=== PATIENT | male | born 1980 | race Hispanic/Latino ===

== ENCOUNTER 2017-06-02 13:27 | Inpatient (IN) ==
[2017-06-02] MEDS ORDERED: ONDANSETRON 4 MG/2 ML VIAL IVP ONE (14:03)
[2017-06-02] MEDS ORDERED: Sodium Chloride 0.9% 1,000 ML PRIMARY IV ONE (14:03)
[2017-06-02] MEDS ORDERED: NORMAL SALINE 10 ML SYRINGE FLUSH IVP PRN ×2 (14:03→19:01)
[2017-06-02] MEDS ORDERED: Sodium Chloride 0.9% 1,000 ML, Magnesium Sulfate 2gm (Premix) 50 ML with Multivitamin I... IV ONE ×5 (14:08)
[2017-06-02] MEDS ORDERED: LORazepam 2 MG/1 ML VIAL IVP ONE ×2 (14:10→19:01)
[2017-06-02] MEDS ORDERED: HYDROmorphone 2 MG/1 ML IVP ONE (14:11)
[2017-06-02 14:12] LABS: BASOPHILS # (AUTO) 0.06 10*3/UL; BASOPHILS % (AUTO) 1.1 % (0-1); EOSINOPHILS # (AUTO) 0.01 10*3/UL; EOSINOPHILS % (AUTO) 0.2 % (0-8); LYMPHOCYTES # (AUTO) 1.45 10*3/uL; MEAN CORPUSCULAR HEMOGLOBIN 27.6 PG (27-31); MEAN CORPUSCULAR HGB CONC 34.9 g/dL (33-37); MEAN CORPUSCULAR VOLUME 79.2 FL (80-90); MEAN PLATELET VOLUME 8.8 FL (7.4-12.2); MONOCYTES # (AUTO) 0.29 10*3/UL (0.3-0.8); MONOCYTES % (AUTO) 5.3 % (5-15); NEUTROPHILS # (AUTO) 3.64 10*3/UL; NEUTROPHILS % (AUTO) 66.6 % (50-80); RED BLOOD COUNT 5.43 10^6/uL (4.70-6.10)
[2017-06-02 14:17] LABS: PLATELET MORPHOLOGY COMMENT NORMAL MORPHOLOGY (NORM); RBC MORPHOLOGY COMMENT NORMAL MORPHOLOGY (NORM); WBC MORPHOLOGY COMMENT NORMAL MORPHOLOGY (NORM)
[2017-06-02 14:18] LABS: BLOOD UREA NITROGEN 7 mg/dL (7-22); SERUM ALBUMIN 5.1 g/dL (3.5-4.8)
[2017-06-02 14:21] LABS: LIPASE 146 IU/L (23-300)
[2017-06-02] MEDS ORDERED: Sodium Chloride 0.9% 1,000 ML with Multivitamin Inj 10 ML, Thiamine Inj 100 MG, Folic A... IV ONE ×5 (14:30)
[2017-06-02 14:32] LABS: VENOUS PH 7.63 (7.32-7.42)
--- NOTE | 2017-06-02 15:39 | EKG ---
[address] [address] Measurements Intervals [place] Rate: 106 P: 58 MS: 137 QRS: 65 QRSD: 94 T: -3 QT: 345 QTc: 407 Interpretive Statements SINUS TACHYCARDIA NONSPECIFIC T-WAVE ABNORMALITY No previous ECG available for comparison Electronically Signed On 06-02-17 16:15:07 MST by Vinay Moctezuma MD [email or web address]
--- NOTE | 2017-06-02 17:23 | DI ---
CT ABDOMEN SCAN WITH IV CONTRAST, 06/02/2017 2:12 PM : Clinical History: Abdominal pain. Previous Exam: None at this facility. Scans are performed from the lower lung bases through the liver and kidneys with IV contrast. 85 ml o f Isovue 300 was injected IV. No oral or rectal contrast was ordered. The lung bases are clear. The liver is normal. The gallbladder is grossly normal. There is no abnorma lity of the spleen, pancreas, and adrenal glands. Both kidneys are normal in size, shape, position an d contour. There is no hydronephrosis or hydroureter. No renal or ureteral calculi are present. There are no abnormal retrocrural or periaortic nodes. No ascites is present. READING: Normal CT abdomen scan. CT PELVIS SCAN WITH IV CONTRAST, 06/02/2017 2:12 PM: Clinical History: See above. Previous Exam: None at this facility. Scans are performed from just superior to the umbilicus to the symphysis pubis with IV contrast. This is the same bolus of contrast used for the CT scans of the abdomen. Scans through the lower abdomen and pelvis show no masses or abnormal fluid collections. There is no adenopathy. The appendix is normal. The small bowel, terminal ileum, and ileocecal valve are normal. The colon is also normal. There is a small umbilical hernia through which only mesenteric fat has her niated. READING: Normal CT scan of the pelvis. There is a small umbilical hernia through which only mesenteric fat has herniated.
[2017-06-02] MEDS ORDERED: Sodium Chloride 0.9% 1,000 ML PRIMARY IV SCH (18:15)
[2017-06-02] MEDS ORDERED: LIDOCAINE W/ SODIUM BICARB 0.5 ML SYR SUBD PRN (19:01)
[2017-06-02] MEDS ORDERED: MAGNESIUM 400 MG/5 ML - 30 ML (MILK OF MAGNESIA) PO PRN (19:01)
--- NOTE | 2017-06-02 19:33 | PDOC ---
HPI - History of Present Illness Date of Service: 06/02/17 Time of Service: 19:25 Chief Complaint: Abdominal pain and alcohol withdrawal History of Present Illness: This is a very pleasant 37-year-old male with a history of alcohol abuse, accompanied by his father, who presents with complaints of alcohol which all and stomach pain. He states that he was told after her scope in [place], [place], that he had a stomach that look like ground meat. He states that he' s had no black or tarry stools, no diarrhea, but he's had diffuse abdominal pain and has had some vomiting. He thinks it could've been some blood in the vomit as well. He was told from [place], [place], that he needed to remain on a proton pump inhibitor and he has been on Protonix since that time. It is not known how consistently he is with those medications. Be that as it may, the patient started drinking again in a binge pattern. He was drinking very heavily until last night. He called [facility], and was apparently accepted into their program for alcohol treatment, but he was told that he needed to go through acute withdrawal prior to arrival. He called there today and told them about his complaints of stomach pain and they told him to come in to the emergency room for evaluation. Lipase was negative and a CT scan was nonrevealing of any pathology to explain abdominal pain. He was in withdrawal, had shaking bilaterally in his upper extremities, had a low-grade temperature 99.2, was hypertensive, and tachycardic. He got 2 mg of Ativan in the emergency room. We have now admitted him and are placing him on a Precedex drip along with Ativan. He is resting a little bit more comfortably now. He stated Ativan and Dilaudid in the emergency room seemed to help him feel better. Past Medical History Medical History: 1. Alcohol abuse with alcohol withdrawal. 2. Presumably either an ulcer or alcoholic gastritis by EGD in [place]. Records of that scope are not available for review. Surgical History: 1. EGD. 2. Testicle removal due to a benign cyst. Pertinent Family History: Family history of alcoholism. Apparently mother's side of the family has coronary artery disease. Past Social History: Smokes tobacco. Denies drug use. Currently unemployed. Drinks alcohol and has been drinking alcohol since age 14. Spent 4 weeks in care home at one point in the past related to alcohol abuse. Tobacco Use: Current Every Day Smoker Do you dip or chew tobacco: Yes In the Past 12 Months, Have Used or Abuse Any of the Following Substance: None Alcohol Use: Heavy Medication / Allergies Home Medications: Home Medications Medication Instructions Recorded Confirmed Type Ibuprofen [Motrin Tab] 200 mg PO Q6H PRN 07/26/14 06/02/17 History Escitalopram Oxalate [Lexapro] 1 tab PO DAILY #30 tab 03/20/16 06/02/17 Rx Oxycodone HCl/Acetaminophen 1 ea PO TID #60 tab 03/20/16 06/02/17 Rx [Percocet 5-325 Mg Tablet] oxyCODONE/APAP 5/325 Tab 1 tab PO Q6H PRN 06/02/17 06/02/17 History [Percocet 5/325 Tab] Allergies/Adverse Reactions: Allergies 3 Allergy/AdvReac Type Severity Reaction Status Date / Time No Known Allergies Allergy Verified 06/02/17 15:31 Review of Systems - Review of Systems All Systems: Reviewed & No Additional Complaints Except as Stated (I did a 12 point review systems and it was negative other than that stated in history present illness and that noted below.) - Respiratory Respiratory: REPORTS: Negative System Review - Cardiovascular Cardiovascular: REPORTS: Negative System Review - Gastrointestinal Gastrointestinal / Abdominal: REPORTS: Abdominal Pain - Psychiatric Psychiatric: REPORTS: Anxiety (He states his anxiety is been severe and diagnosed a couple of times, but he did not do well on Xanax therapy. Not on active medications for his anxiety.) Exam - Vitals Vital Signs: Vital Signs - Last Taken Temperature 97.2 F 06/02/17 16:15 Pulse Rate 85 06/02/17 16:15 Respiratory Rate 18 06/02/17 16:15 Blood Pressure 164/107 06/02/17 16:15 Pulse Ox 100 06/02/17 16:15 - General General Appearance: Cooperative, Mild Distress (In withdrawal) - Head Head Exam: Normal Inspection, Normocephalic, Atraumatic - Eye Eye Exam: POSITIVE: No Scleral Icterus - ENT ENT Exam: POSITIVE: Mucous Membranes Dry Additonal ENT Exam Details: Poor dentition and missing several front teeth No lacerations on tongue - Neck Neck Exam: Normal Inspection, No Tenderness, No Lymphadenopathy, No Thyromegaly - Respiratory Respiratory Exam: POSITIVE: Clear to Auscultation - Bilaterally, Breathing Non Labored, Normal to Percussion and Palpation - Cardiovascular Cardiovascular Exam: POSITIVE: No Murmur, No Clicks, No Gallops, No Rubs, Tachycardia, No JVD - GI/Abdominal GI/Abdominal Exam: POSITIVE: Normal Bowel Sounds, Non Tender, Non Distended, Soft - Rectal Rectal Exam: POSITIVE: Deferred - External Exam: POSITIVE: Deferred Exam: POSITIVE: Deferred - Extremities Extremities Exam: POSITIVE: No Clubbing Present, No Edema Present, No Cyanosis Present - Back Back Exam: POSITIVE: Normal Inspection, No CVA Tenderness - Neurological Neurological Exam: POSITIVE: Alert, Oriented x 3, No Facial Droop, Speech Intact / Clear, Moves All Extremities Equally - Psychiatric Psychiatric Exam: POSITIVE: Anxious Results - Labs CBC and BMP: 06/02/17 13:30 06/02/17 13:30 - EKG Data -: EKG Interpreted by Me Rate: Tachycardia EKG Shows Normal: Sinus Rhythm - Imaging Status: Report Reviewed by Me (CT scan negative for pancreatitis on my view.) Assessment and Plan - Patient Problems (1) Delirium tremens Current Visit: Yes Status: Acute Code(s): F10.231 - Alcohol dependence with withdrawal delirium (2) Alcoholic gastritis Current Visit: Yes Status: Acute Code(s): K29.20 - Alcoholic gastritis without bleeding (3) Hypomagnesemia Current Visit: Yes Status: Acute Code(s): E83.42 - Hypomagnesemia - Assessment / Plan Additional Assessment/Plan Details: Admit the patient CIWA protocol. Precedex drip. Replace electrolytes such as potassium and magnesium. Given the severe nature of delirium tremens, and potential life-threatening issues that can arise with delirium tremens, Precedex drip, and sedative medications such as benzodiazepines, the patient really needs to be in the intensive care unit. Librium will be administered 3 times a day Consultation eICU to help with management of delirium tremens and severe alcohol withdrawal. I agree with the patient's plan to go to [facility] for alcohol rehabilitation. I discussed this with the patient and the patient's father, and I think that his plan is really good. Protonic IV for what I presume to be alcoholic gastritis. Try to get the records from [place].
--- NOTE | 2017-06-02 19:35 | PDOC ---
Abdomen/Flank HPI - General Chief Complaint: Chest Pain Stated Complaint: "alcohol withdrawal; abdominal pain " Date Seen by Provider: 06/02/17 Time Seen by Provider: 13:40 Source: POSITIVE: Patient, Other (Father) Exam Limitations: POSITIVE: No limitations Nurse's Notes Reviewed & Considered: Yes - History of Present Illness Initial Comments: The patient is a 37-year-old male who is brought to the emergency room by his father. Patient has a long-standing history of alcohol abuse. Patient states he stopped drinking around 6 PM yesterday evening and early this morning began to develop tremulousness, diaphoresis, rapid heart rate and anxiety. He also states he's had some epigastric pain for the past 2 days, which is become worse over the past 2 hours. Patient was having his [place] [facility] [place] Patient states symptoms became severe so the father brought the patient to our emergency room. Patient states that he has a history of withdrawal and "DTs". He states he also has a history of pancreatitis. Patient states he underwent endoscopy 2 months ago, and he states this showed "the lining of my stomach". Patient denies any use of illegal drugs. Patient has had a right orchiectomy. History of hypertension. Body Location Affected: REPORTS: Abdomen, Other (Withdrawal symptoms as above) Timing: REPORTS: Gradual, Getting Worse Duration: <24 hours Severity: Moderate Quality: REPORTS: "Pain" (Upper abdominal pain) Abdominal Pain Onset Location: REPORTS: RUQ, LUQ, Epigastric Abdominal Pain Radiation: REPORTS: No radiation Context: REPORTS: None Modifying Factors: improves with: Nothing Associated Symptoms: REPORTS: Other (Adrenergic symptoms compatible with alcohol withdrawal as above) Similar Symptoms Previously: Yes Recent Care Received: REPORTS: Denies Any Prior Injuries Related to Current Complaint?: No - Patient Home Medications Home Medications: Home Medications Ibuprofen [Motrin Tab] 200 mg PO Q6H PRN 07/26/14 Escitalopram Oxalate [Lexapro] 1 tab PO DAILY #30 tab 03/20/16 Oxycodone HCl/Acetaminophen [Percocet 5-325 Mg Tablet] 1 ea PO TID #60 tab 03/20 oxyCODONE/APAP 5/325 Tab [Percocet 5/325 Tab] 1 tab PO Q6H PRN 06/02/17 - Patient Allergies Allergies/Adverse Reactions: Allergies 3 Allergy/AdvReac Type Severity Reaction Status Date / Time No Known Allergies Allergy Verified 06/02/17 15:31 Past Medical History - heen HEENT History: Denies History Cardiovascular History: Denies History Respiratory History: Denies History Gastrointestinal History: Pancreatitis, Other (please comment) Additional Gastrointestinal History: Patient recently had endoscopy, states the doctor told him his stomach "looked like hamburger" Genitourinary History: Denies History Endocrine History: Denies History Musculoskeletal History: Denies History Neurological History: Denies History Blood Disorders: Denies History Psychiatric History: Denies History History of Sexually Transmitted Diseases: No Male Reproductive History: Denies History Cancer History: Denies History In Past Year Been Physically Harmed or Verbally Threatened: No History of MDRO: No History of Other Communicable Diseases: No Tobacco Use: Current Every Day Smoker Alcohol Use: None Type of alcohol normally used: Hard Liquor In the Past 12 Months, Have Used or Abuse Any Substance: None Previous Surgical History: Yes Type / Date of Surgery: testicle removed Anesthesia Reactions: No Malignant Hyperthermia: No Family History of Malignant Hyperthermia: No Significant Family History: No pertinent family hx Past Medical History Reviewed: Reviewed - No Changes ROS - Limitations ROS Limitations: No Limitations Constitution: REPORTS: Chills, Diaphoresis, Other (Tremulousness, anxiety, tachycardia) Cardiovascular: REPORTS: Heart Racing Respiratory: REPORTS: Denies Resp Symptoms Neurological: REPORTS: Denies Neuro Symptoms, Tingling Gastrointestinal: REPORTS: Abdominal Pain, Nausea. DENIES: Vomitting, Diarrhea , Black Stools, Bloody Stools, Constipation Endocrine: REPORTS: Denies Symptoms Musculoskeletal: REPORTS: Denies MS Symptoms Genitourinary: REPORTS: Denies Symptoms Eyes: REPORTS: Denies Symptoms ENT: REPORTS: Denies Symptoms Skin: REPORTS: Denies Skin Symptoms Lympathic: REPORTS: Denies Lympathic Symptoms Immunologic: POSITIVE: Denies Symptoms Psychiatric: POSITIVE: Anxiety Abdominal/Flank Pain PE - General Appearance General Appearance: POSITIVE: Alert, Cooperative, Anxious, Moderate Distress ( Due to anxiety, tremulousness and upper abdominal pain) - HEENT HEENT: POSITIVE: Head Inspection Nml, Eyes Inspection Nml, Ears Inspection Nml, Nose Inspection Nml, Oral/Dental Inspect. Nml, Pharynx Inspect. Nml, PERRL, EOMI - Neck Neck: POSITIVE: Normal Inspection, No Apparent Injury - Respiratory Respiratory: POSITIVE: Other (Hyperventilating). NEGATIVE: No Respiratory Distress, Breath Sounds Normal, Chest Non-Tender, Wheezes, Rales, Rhonchi, See Diagram - Cardiovascular Cardiovascular: POSITIVE: Regular Rate and Rhythm, Heart Sounds Normal, Equal Pulses, Strong Pulses, Tachycardia (Sinus tachycardia of 115). NEGATIVE: Irregularly Irreg Rhythm Peripheral Pulses: Radial (R): 2+, Radial (L): 2+ - Chest Chest: POSITIVE: Non Tender - Abdomen Abdomen: Soft: (All Quadrants), Normal Bowel Sounds: (All Quadrants), Denies Tenderness: (All Quadrants), No Splenomegaly: (All Quadrants), No Hepatomegaly: (All Quadrants), No Guarding: (All Quadrants), No Rebound: (All Quadrants), No Palpable Pulse: (All Quadrants), No Palpabale Mass: (All Quadrants), No Distention: (All Quadrants), No Rigidity: (All Quadrants) - Back Back: POSITIVE: Normal Inspection - Skin Skin: POSITIVE: Intact, Normal For Race, Warm, Dry, No Rash - Extremities Extremity: Non-Tender: (All Extremities), Normal ROM: (All Extremities), Normal Inspection: (All Extremities) - Neurological Neurological: POSITIVE: Oriented X3, injury/safety hazard assessment Normal As Tested, Motor Normal, Sensation Normal. NEGATIVE: Affect Apporpriate (Very anxious) - Psychological Psychiatric: POSITIVE: Anxious Images - Complete Complete: 1 - Abdominal pain Abdomen Progress - Results Reviewed by me Xrays/CTs/US Reviewed by me: Yes Discussed with Radiologist: Yes Radiology Findings: CT scan abdomen and pelvis with IV contrast normal per radiologist. Lab Results Reviewed by Me: Yes (amylase, lipase normal, blood alcohol 21) CBC and BMP: 06/02/17 13:30 06/02/17 13:30 EKG Interpreted/Reviewed By Me:: Yes (sinus tachycardia, 110/m) EKG Interpretation:: POSITIVE: Normal Intervals, Normal [place], Normal QRS, Normal ST/T, Abnormal EKG (Sinus tachycardia). NEGATIVE: Normal Sinus Rhythm, Normal Rate - Patient's Progress Pain Medication Addressed: POSITIVE: Yes (Patient given 2 mg of Dilaudid for abdominal pain and 2 mg of Ativan for alcohol withdrawal) Re-examine Time: 17:00 Re-Examine Comment: Patient given a banana bag of 1 L normal saline with 2 g magnesium, 1 mg folic acid, 100 mg thiamine. Abdominal pain less and patient much more relaxed at this time. Status: POSITIVE: Improved, Re-Examined - Consult Consult (If Yes, Name of Consulting MD & Time Called): Yes (Dr. Harley, hospitalist, [id number]) Consulting MD will see pt:: POSITIVE: [facility] Admit Counseled: POSITIVE: Patient, Family, RE: Lab Results, RE: Radiology Results, RE : DX, RE: Need for F/U Patient Care Time - Estimated PCT Patient Care Time (In Minutes): 60 Vital Signs - Recent Vital Signs Vital Signs: Vital Signs (Last 8 hours) Temp Pulse Resp BP Pulse Ox 06/02/17 16:15 97.2 F 85 18 164/107 100 06/02/17 14:59 99.2 F 114 H 20 154/109 96 06/02/17 14:04 98.2 F 111 H 24 182/102 100 - VS Reviewed Vital Signs Reviewed: Yes Discharge Clinical Impression: Alcohol withdrawal, Abdominal pain Discharge Disposition: Admit to Inpatient Date Decision to Admit to Inpatient: 06/02/17 Time Decision to Admit to Inpatient: 17:30
[2017-06-02] MEDS ORDERED: Magnesium Sulfate 2gm (Premix) 2 GM/50 ML BAG IV ONE ×2 (19:40→21:33)
[2017-06-02] MEDS: Sodium Chloride 0.9% 1,000 ML, Magnesium Sulfate 2gm (Premix) 50 ML with Multivitamin I... IV SCH ×5 (20:56)
[2017-06-02] MEDS: Dexmedetomidine/NS 400 MCG/100 ML INFUS..BTL IV SCH (21:01)
[2017-06-02] MEDS ORDERED: Sodium Chloride 0.9% 1,000 ML ONE (21:33)
[2017-06-02] MEDS: LORazepam Inj(ETOH withdrawal) 2 MG/ML VIAL IVP PRN (23:23)
[2017-06-03] MEDS: ChlordiazePOXIDE Cap 25 MG CAPSULE PO SCH ×4 (00:18→21:43)
[2017-06-03] MEDS: LORazepam Inj(ETOH withdrawal) 2 MG/ML VIAL IVP PRN ×10 (01:51→23:48)
[2017-06-03] MEDS ORDERED: MVI, ADULT NO.1 WITH VIT K 10 ML VIAL IV ONE (04:31)
[2017-06-03] MEDS ORDERED: THIAMINE 100 MG/1 ML - 2 ML ONE (04:31)
[2017-06-03] MEDS ORDERED: Sodium Chloride 0.9% 1,000 ML ONE (04:31)
[2017-06-03] MEDS: Sodium Chloride 0.9% 1,000 ML PRIMARY IV SCH ×3 (06:06→21:36)
[2017-06-03] MEDS: Pantoprazole Inj 40 MG in Normal Saline Flush 10 ML IVP SCH ×2 (07:15→18:57)
[2017-06-03] MEDS: ACETAMINOPHEN 325 MG TABLET PO PRN ×3 (07:30→23:26)
[2017-06-03] MEDS: MAG HYDROX/AL HYDROX/SIMETH 30 ML SUSP PO PRN ×5 (07:30→23:27)
[2017-06-03 07:41] LABS: BASOPHILS # (AUTO) 0.02 10*3/UL; BASOPHILS % (AUTO) 0.5 % (0-1); EOSINOPHILS # (AUTO) 0.06 10*3/UL; EOSINOPHILS % (AUTO) 1.4 % (0-8); Hematocrit [HCT] 39.1 % (42.0-52.0); Hemoglobin [HGB] 13.3 g/dL (14.0-18.0); LYMPHOCYTES # (AUTO) 1.07 10*3/uL; MEAN CORPUSCULAR HEMOGLOBIN 27.8 PG (27-31); MEAN CORPUSCULAR VOLUME 81.8 FL (80-90); MONOCYTES # (AUTO) 0.25 10*3/UL (0.3-0.8); MONOCYTES % (AUTO) 5.7 % (5-15); NEUTROPHILS # (AUTO) 2.97 10*3/UL; NEUTROPHILS % (AUTO) 67.9 % (50-80); RED BLOOD COUNT 4.78 10^6/uL (4.70-6.10)
[2017-06-03 07:55] LABS: PLATELET MORPHOLOGY COMMENT NORMAL MORPHOLOGY (NORM); RBC MORPHOLOGY COMMENT NORMAL MORPHOLOGY (NORM); WBC MORPHOLOGY COMMENT NORMAL MORPHOLOGY (NORM)
[2017-06-03 08:06] LABS: BLOOD UREA NITROGEN 6 mg/dL (7-22); BUN/CREATININE RATIO 8.57 (6-20); SERUM ALBUMIN 3.7 g/dL (3.5-4.8)
[2017-06-03] MEDS ORDERED: ESCITALOPRAM OXALATE PO SCH (09:00)
[2017-06-03] MEDS ORDERED: Pantoprazole Inj 40 MG in Normal Saline Flush 10 ML IVP SCH (09:00)
[2017-06-03] MEDS: NICOTINE 21 MG /DAY PATCH TRANSDERM SCH (09:28)
[2017-06-03] MEDS: Patch Removal PATCH TRANSDERM SCH (09:29)
[2017-06-03] MEDS ORDERED: CYANOCOBALAMIN 1000 MCG/1 ML VIAL IM ONE (09:46)
[2017-06-03] MEDS: Dexmedetomidine/NS 400 MCG/100 ML INFUS..BTL IV SCH (13:04)
[2017-06-03] MEDS: Sucralfate Tab 1 GM TAB PO PRN ×2 (15:20→23:30)
--- NOTE | 2017-06-03 17:13 | PDOC(PROG) ---
Date and Time of Service: 06/03/2017, 1710 Interval History: no chest pain no SOB no nausea, no vomiting. still complains of abdominal pain still with occasional tremors, no hallucinations. Objective : Data - Labs CBC and BMP: 06/03/17 06:55 06/03/17 06:55 Objective : Exam - General General Appearance: No Acute Distress, Cooperative Additional General Exam Details: Vital Signs - Last Taken Temperature 97.7 F 06/03/17 15:01 Pulse Rate 64 06/03/17 16:00 Respiratory Rate 17 06/03/17 16:00 Blood Pressure 105/73 06/03/17 16:00 Pulse Ox 98 06/03/17 16:00 - Eye Eye Exam: No Scleral Icterus - ENT ENT Exam: Mucous Membranes Moist - Respiratory Respiratory Exam: Clear to Auscultation - Bilaterally, Breathing Non Labored - Cardiovascular Cardiovascular Exam: RRR, No Murmur, No Clicks, No Gallops, No Rubs, No JVD - GI/Abdominal GI/Abdominal Exam: Normal Bowel Sounds, Non Tender (with palpation), Non Distended, Soft - Extremities Extremities Exam: No Clubbing Present, No Edema Present, No Cyanosis Present - Neurological Neurological Exam: Alert, Oriented x 3, No Facial Droop, Speech Intact / Clear, Moves All Extremities Equally Assessment and Plan - Patient Problems (1) Delirium tremens Current Visit: Yes Status: Acute Code(s): F10.231 - Alcohol dependence with withdrawal delirium (2) Alcoholic gastritis Current Visit: Yes Status: Acute Code(s): K29.20 - Alcoholic gastritis without bleeding Qualifiers: Chronicity: chronic Gastritis bleeding: without bleeding Qualified Code(s ): K29.20 - Alcoholic gastritis without bleeding (3) Hypomagnesemia Current Visit: Yes Status: Acute Code(s): E83.42 - Hypomagnesemia (4) Alcohol abuse Current Visit: Yes Status: Acute Code(s): F10.10 - Alcohol abuse, uncomplicated (5) Tobacco abuse Current Visit: Yes Status: Acute Code(s): Z72.0 - Tobacco use - Assessment / Plan Additional Assessment/Plan Details: continue precedex PRN ativan on CIWA continue librium check electrolytes vitamin B12 looks low, likely deficient, give vitamin B12 today for alcoholic gastritis, continue protonix, add carafate for pain relief NO OPIATES hopefully will be able to titrate precedex in AM and work towards discharge as withdrawal improves. smoking cessation education
[2017-06-03] MEDS ORDERED: Sodium Chloride 0.9% 1,000 ML with Multivitamin Inj 10 ML, Thiamine Inj 100 MG, Folic A... IV SCH ×5 (20:30)
[2017-06-03] MEDS: ONDANSETRON 4 MG/2 ML VIAL IV PRN (21:43)
[2017-06-03] MEDS: Sodium Chloride 0.9% 1,000 ML, Magnesium Sulfate 2gm (Premix) 50 ML with Multivitamin I... IV SCH ×5 (22:00)
[2017-06-03] MEDS: Loperamide Tab 2 MG TABLET PO PRN (23:27)
[2017-06-04] MEDS: LORazepam Inj(ETOH withdrawal) 2 MG/ML VIAL IVP PRN ×2 (01:52→05:04)
[2017-06-04] MEDS: MAG HYDROX/AL HYDROX/SIMETH 30 ML SUSP PO PRN (02:47)
[2017-06-04] MEDS: Dexmedetomidine/NS 400 MCG/100 ML INFUS..BTL IV SCH (02:47)
[2017-06-04] MEDS: Sodium Chloride 0.9% 1,000 ML PRIMARY IV SCH ×3 (04:40→17:41)
[2017-06-04] MEDS: ONDANSETRON 4 MG/2 ML VIAL IV PRN (05:39)
[2017-06-04] MEDS: Sucralfate Tab 1 GM TAB PO PRN ×3 (05:40→15:30)
[2017-06-04] MEDS: Loperamide Tab 2 MG TABLET PO PRN (05:40)
[2017-06-04 05:45] LABS: BASOPHILS # (AUTO) 0.01 10*3/UL; BASOPHILS % (AUTO) 0.4 % (0-1); EOSINOPHILS # (AUTO) 0.05 10*3/UL; Hematocrit [HCT] 36.2 % (42.0-52.0); Hemoglobin [HGB] 12.5 g/dL (14.0-18.0); LYMPHOCYTES # (AUTO) 0.93 10*3/uL; MEAN CORPUSCULAR HEMOGLOBIN 28.2 PG (27-31); MEAN CORPUSCULAR HGB CONC 34.5 g/dL (33-37); MEAN CORPUSCULAR VOLUME 81.5 FL (80-90); MEAN PLATELET VOLUME 9.6 FL (7.4-12.2); MONOCYTES # (AUTO) 0.14 10*3/UL (0.3-0.8); MONOCYTES % (AUTO) 5.6 % (5-15); NEUTROPHILS # (AUTO) 1.37 10*3/UL; NEUTROPHILS % (AUTO) 54.8 % (50-80); RED BLOOD COUNT 4.44 10^6/uL (4.70-6.10)
[2017-06-04 05:52] LABS: PLATELET MORPHOLOGY COMMENT NORMAL MORPHOLOGY (NORM); RBC MORPHOLOGY COMMENT NORMAL MORPHOLOGY (NORM); WBC MORPHOLOGY COMMENT NORMAL MORPHOLOGY (NORM)
[2017-06-04 05:57] LABS: BLOOD UREA NITROGEN 6 mg/dL (7-22); BUN/CREATININE RATIO 8.57 (6-20); SERUM ALBUMIN 3.4 g/dL (3.5-4.8)
[2017-06-04] MEDS: Pantoprazole Inj 40 MG in Normal Saline Flush 10 ML IVP SCH ×2 (07:17→20:00)
--- NOTE | 2017-06-04 08:43 | PDOC(PROG) ---
Date and Time of Service: 06/04/2017 8:47 AM Interval History: Subjective Patient came into the hospital because of alcohol withdrawal. He had nausea. In addition to abdominal pain. He said he had problem with alcohol and he called [facility] and was told that he can go there and they did initial intake then he had pain and they called him back and told him that he needs to go to nearest emergency and that's when he presented here. His main complaint now is not shaking or pain in his hands he said but it's mainly abdominal pain in the epigastrium. The pain described as sharp and burning he said it was similar to what he had before. He was diagnosed with gastritis and portal gastropathy abouts 8 months ago in [facility]. Objective : Data - Labs CBC and BMP: 06/04/17 04:56 06/04/17 04:56 Objective : Exam - General General Appearance: Cooperative Additional General Exam Details: He appears in pain at times - Head Head Exam: Normal Inspection - Eye Eye Exam: Normal Appearance - ENT ENT Exam: Normal Exam - Neck Neck Exam: Normal Inspection - Respiratory Respiratory Exam: Clear to Auscultation - Bilaterally - Cardiovascular Cardiovascular Exam: RRR - GI/Abdominal GI/Abdominal Exam: Normal Bowel Sounds, Non Distended, Soft Additional GI/Abdominal Exam Details: Tenderness in the epigastrium noted. - Rectal Rectal Exam: Deferred - External Exam: Deferred - Extremities Extremities Exam: Normal Inspection - Back Back Exam: Normal Inspection - Neurological Neurological Exam: Alert, Oriented x 3, Normal Gait, CN II-XII Intact, Speech Intact / Clear, Moves All Extremities Equally - Psychiatric Psychiatric Exam: Normal Affect Assessment and Plan - Patient Problems (1) Delirium tremens Current Visit: Yes Status: Acute Comment: I think we'll start tapering the Precedex off gradually. He is on IV Ativan for CIWA Will write also for oral to to see if we can control his symptoms with oral Ativan. Code(s): F10.231 - Alcohol dependence with withdrawal delirium (2) Alcoholic gastritis Current Visit: Yes Status: Acute Comment: Continue Protonix. He continued to complain from abdominal pain he had a history of pancreatitis according to him will write for oral oxycodone. Code(s): K29.20 - Alcoholic gastritis without bleeding Qualifiers: Chronicity: chronic Gastritis bleeding: without bleeding Qualified Code(s ): K29.20 - Alcoholic gastritis without bleeding (3) Hypomagnesemia Current Visit: Yes Status: Acute Comment: This is replaced. Code(s): E83.42 - Hypomagnesemia (4) Alcohol abuse Current Visit: Yes Status: Acute Comment: Continue current management will consult [facility]. I'm not sure whether he clearly was accepted by [facility] based on what he told me. Code(s): F10.10 - Alcohol abuse, uncomplicated
[2017-06-04] MEDS: oxyCODONE IR Tab 5 MG TAB PO PRN ×4 (09:17→21:32)
[2017-06-04] MEDS: ChlordiazePOXIDE Cap 25 MG CAPSULE PO SCH ×3 (09:18→20:01)
[2017-06-04] MEDS: LORazepam 1 MG TABLET PO PRN ×4 (09:18→21:32)
[2017-06-04] MEDS: Patch Removal PATCH TRANSDERM SCH (10:05)
[2017-06-04] MEDS: NICOTINE 21 MG /DAY PATCH TRANSDERM SCH (10:08)
[2017-06-04] MEDS ORDERED: Sodium Chloride 0.9% 1,000 ML PRIMARY IV SCH (17:29)
[2017-06-04] MEDS ORDERED: Sucralfate Tab 1 GM TAB PO PRN (17:29)
[2017-06-04] MEDS ORDERED: ONDANSETRON 4 MG/2 ML VIAL IV PRN (17:29)
[2017-06-04] MEDS ORDERED: LIDOCAINE W/ SODIUM BICARB 0.5 ML SYR SUBD PRN (17:29)
[2017-06-04] MEDS ORDERED: NORMAL SALINE 10 ML SYRINGE FLUSH IVP PRN (17:29)
[2017-06-04] MEDS ORDERED: MAG HYDROX/AL HYDROX/SIMETH 30 ML SUSP PO PRN (17:29)
[2017-06-04] MEDS ORDERED: LORazepam Inj(ETOH withdrawal) 2 MG/ML VIAL IVP PRN (17:29)
[2017-06-04] MEDS ORDERED: Loperamide Tab 2 MG TABLET PO PRN (17:29)
[2017-06-04] MEDS ORDERED: MAGNESIUM 400 MG/5 ML - 30 ML (MILK OF MAGNESIA) PO PRN (17:29)
[2017-06-04] MEDS ORDERED: Sodium Chloride 0.9% 1,000 ML with Multivitamin Inj 10 ML, Thiamine Inj 100 MG, Folic A... IV SCH ×5 (20:30)
[2017-06-05] MEDS: LORazepam 1 MG TABLET PO PRN (01:06)
[2017-06-05] MEDS: oxyCODONE IR Tab 5 MG TAB PO PRN ×3 (01:06→09:28)
[2017-06-05 04:49] VITALS: O2SAT 99
[2017-06-05] MEDS ORDERED: Influenza 17-18 Vaccine (6mo+) Quad 60mcg/0.5ml PF IM ONE (06:32)
[2017-06-05] MEDS: Pantoprazole Inj 40 MG in Normal Saline Flush 10 ML IVP SCH (07:21)
[2017-06-05 07:34] VITALS: BP 146/105; RESP 16; TEMP 97
[2017-06-05] MEDS: ChlordiazePOXIDE Cap 25 MG CAPSULE PO SCH (08:52)
[2017-06-05] MEDS ORDERED: NICOTINE 21 MG /DAY PATCH TRANSDERM SCH (09:00)
[2017-06-05] MEDS ORDERED: Patch Removal PATCH TRANSDERM SCH (09:00)
--- NOTE | 2017-06-05 09:39 | DCSUMMARY ---
Hospitalization Summary Admit Date: 06/02/2017 Discharge Date: 06/05/17 Hospital Course: Discharge diagnoses 1. Alcohol abuse with alcohol withdrawal 2. History of alcoholic gastritis 3. History of portal gastropathy 4. Anxiety Hospital course This is a 37 years old male with medical history significant for history of alcohol abuse, anxiety and history of alcoholic gastritis and portal gastropathy. He presented to the hospital with symptoms of alcohol withdrawal in addition to pain in his abdomen. he had a scope before in [place] and that showed alcoholic gastritis with portal gastropathy. He was on Protonix. He started drinking again 3 weeks before presentation heavily. Apparently he called [facility] according to him and was accepted for treatment and he was heading there, but he had abdominal pain and they called him back and told him to go to the nearest ER so he presented to our ER and he was admitted. He was having significant shakes and withdrawal so he was put on Precedex after evaluation by Dr. Harley please see his note. In addition he was also at put on Ativan as needed. Gradually there was control of his symptoms. I saw him later on during his hospital stay he was still complaining from abdominal pain a CT of the abdomen was negative. We did add some OxyIR and that seemed to help in addition to the Carafate and the Protonix. We were able to taper him off the Precedex. We transferred him out of the ICU. The day of discharge he was doing much better. Exam was not remarkable and no tremors. We thought that he can be discharged home and follow-up with his PCP. He was evaluated by [facility] and it sounded like there was a misunderstanding on his part as there was no beds for him to go to [facility]. it was decided that the he can be discharged home and follow- up with [facility] as an outpatient. He did request two pills of oxycodone in case pain gets worse. We did write a prescription for 6 pills of Xanax for his anxiety. He said he tried Zoloft, Paxil, Effexor, Lexapro nothing works. So we gave him Xanax and told him to follow-up with [facility] and see the psychiatrist. I did advise him Not to drink while taking those medication and he understands the risk that include . Discharge instruction Diet regular Activity as started Medications Home Medications Medication Instructions Recorded Confirmed Type Oxycodone HCl/Acetaminophen 1 ea PO TID #60 tab 03/20/16 06/02/17 Rx [Percocet 5-325 mg Tablet] oxyCODONE/APAP 5/325 Tab 1 tab PO Q6H PRN 06/02/17 06/02/17 History [Percocet 5/325 Tab] ALPRAZolam Tab [Xanax Tab] 0.25 mg PO BID PRN #6 tab 06/05/17 Rx Pantoprazole Sodium [Protonix] 40 mg PO DAILY #30 suspdr.pkt 06/05/17 Rx Sucralfate [Carafate] 1 gm PO AC HS PRN tab 06/05/17 Rx oxyCODONE IR Tab [OxyIR Tab] 5 mg PO QID PRN #2 tab 06/05/17 Rx Follow-up with PCP in 1-2 weeks, follow-up with [facility] as scheduled next week Condition at discharge was stable for discharge Exam - Vitals Vital Signs: Vital Signs Temperature 97 F Temperature Source Temporal Artery Scan Pulse Rate [Apical] 72 Pulse Rate [Pulse Oximeter] 90 Pulse Rate 82 Respiratory Rate 16 Blood Pressure [Left Arm] 157/98 Blood Pressure 146/105 Pulse Ox 99 Oxygen Delivery Method Room Air Height 5 ft 6 in Weight 161 lb 12.8 oz - General General Appearance: No Acute Distress, Cooperative, Thin - Head Head Exam: Normal Inspection, Atraumatic - Eye Eye Exam: POSITIVE: Normal Appearance - ENT ENT Exam: POSITIVE: Normal Exam - Neck Neck Exam: Normal Inspection - Respiratory Respiratory Exam: POSITIVE: Clear to Auscultation - Bilaterally - Cardiovascular Cardiovascular Exam: POSITIVE: RRR - GI/Abdominal GI/Abdominal Exam: POSITIVE: Normal Bowel Sounds, Non Tender, Non Distended, Soft, No Organomegaly - Rectal Rectal Exam: POSITIVE: Deferred - External Exam: POSITIVE: Deferred - Extremities Extremities Exam: POSITIVE: Normal Inspection Additional Extremities Exam Details: No tremor noted - Back Back Exam: POSITIVE: Normal Inspection - Neurological Neurological Exam: POSITIVE: Alert, Oriented x 3, CN II-XII Intact, No Facial Droop, Speech Intact / Clear, Moves All Extremities Equally - Psychiatric Psychiatric Exam: POSITIVE: Normal Affect Patient Problems - Patient Problem List (1) Delirium tremens Status: Acute Code(s): F10.231 - Alcohol dependence with withdrawal delirium Category: Medical (2) Alcoholic gastritis Status: Acute Code(s): K29.20 - Alcoholic gastritis without bleeding Qualifiers: Chronicity: chronic Gastritis bleeding: without bleeding Qualified Code(s ): K29.20 - Alcoholic gastritis without bleeding Category: Medical (3) Hypomagnesemia Status: Acute Code(s): E83.42 - Hypomagnesemia Category: Medical (4) Alcohol abuse Status: Acute Code(s): F10.10 - Alcohol abuse, uncomplicated Category: Medical
== END 2017-06-05 09:49 | disposition home or self-care (01) | DRG 897 ==
LOC: ER 13:27 → ICU 17:37 → MED/SURG 06-04 16:37
PROVIDERS: ADMIT Internal Medicine; ATTEND Internal Medicine

== ENCOUNTER 2018-05-24 13:01 | Inpatient (IN) ==
[2018-05-24] MEDS ORDERED: PANTOPRAZOLE IV 40 MG VIAL IVP ONE (13:15)
[2018-05-24] MEDS ORDERED: ONDANSETRON 4 MG/2 ML VIAL IVP ONE ×2 (13:15→15:40)
[2018-05-24] MEDS ORDERED: Sodium Chloride 0.9% 1,000 ML, Magnesium Sulfate 2gm (Premix) 50 ML with Multivitamin I... IV ONE ×5 (13:17)
[2018-05-24] MEDS ORDERED: LORazepam 2 MG/1 ML VIAL IVP ONE (13:18)
[2018-05-24] MEDS ORDERED: Sodium Chloride 0.9% 1,000 ML with Multivitamin Inj 10 ML, Thiamine Inj 100 MG, Folic A... IV ONE ×5 (13:30)
[2018-05-24] MEDS ORDERED: Sodium Chloride 0.9% 1,000 ML PRIMARY IV ONE ×2 (13:31→13:37)
[2018-05-24 13:33] LABS: BASOPHILS # (AUTO) 0.03 10*3/UL; BASOPHILS % (AUTO) 0.5 % (0-1); EOSINOPHILS # (AUTO) 0.02 10*3/UL; EOSINOPHILS % (AUTO) 0.3 % (0-8); Hematocrit [HCT] 42.6 % (42.0-52.0); Hemoglobin [HGB] 15.3 g/dL (14.0-18.0); LYMPHOCYTES # (AUTO) 1.68 10*3/uL; MEAN CORPUSCULAR HEMOGLOBIN 26.7 PG (27-31); MEAN CORPUSCULAR HGB CONC 35.9 g/dL (33-37); MEAN CORPUSCULAR VOLUME 74.3 FL (80-90); MEAN PLATELET VOLUME 8.4 FL (7.4-12.2); MONOCYTES % (AUTO) 3.3 % (5-15); NEUTROPHILS # (AUTO) 4.07 10*3/UL; NEUTROPHILS % (AUTO) 67.7 % (50-80); PLATELET MORPHOLOGY COMMENT NORMAL MORPHOLOGY (NORM); RBC MORPHOLOGY COMMENT NORMAL MORPHOLOGY (NORM); RED BLOOD COUNT 5.73 10^6/uL (4.70-6.10); WBC MORPHOLOGY COMMENT NORMAL MORPHOLOGY (NORM)
[2018-05-24 13:47] LABS: BLOOD UREA NITROGEN 13 mg/dL (7-22); BUN/CREATININE RATIO 16.25 (6-20); LIPASE 370 IU/L (23-300); SERUM ALBUMIN 5.1 g/dL (3.5-4.8)
[2018-05-24] MEDS ORDERED: fentaNYL Inj 100 MCG/2 ML VIAL IVP ONE ×3 (13:47→15:12)
[2018-05-24 15:16] LABS: BILIRUBIN,URINE NEGATIVE (NEG); CLARITY,URINE CLEAR (CLEAR); COLOR,URINE YELLOW (Y); GLUCOSE, URINE (UA) NEGATIVE (NEG); OCCULT BLOOD,URINE NEGATIVE (NEG); PROTEIN,URINE NEGATIVE (NEG); UROBILINOGEN,URINE 0.2 EU/dL (0.2)
[2018-05-24 15:17] LABS: URINE SAMPLE TYPE VOIDED SPECIMEN
[2018-05-24 15:33] LABS: AMPHETAMINE SCREEN NEGATIVE (NEG); CANNABINOID SCREEN,URINE NEGATIVE (NEG); COCAINE SCREEN NEGATIVE (NEG); METHADONE URINE SCREEN NEGATIVE (NEG); METHAMPHETAMINES SCREEN,URINE NEGATIVE (NEG); OPIATE SCREEN,URINE NEGATIVE (NEG); URINE SAMPLE TYPE CLEAN CATCH URINE; URINE SPECIFIC GRAVITY - MAN 1.015
--- NOTE | 2018-05-24 15:34 | DI ---
CT Abdomen/Pelvis W Contrast,05/24/2018 1:17 PM: Clinical History: Abdominal pain Previous Exam: None at this facility. Findings: Multiple helically acquired CT images are obtained through the abdomen and pelvis following intraveno us administration of 75 cc of Isovue 300, and demonstrates clear lung bases. There is mild diffuse fa tty infiltration of the liver. The gallbladder, kidneys, adrenals, pancreas and spleen are unremarkable. The appendix is normal. The urinary bladder is unremarkable. The anterior abdominal wall and subcutaneous fat is unremarkable. T here is no free air nor free fluid. There is no retroperitoneal nor mesenteric lymphadenopathy. Impression: No acute intra-abdominal pathology.
[2018-05-24] MEDS ORDERED: ONDANSETRON 4 MG/2 ML VIAL IVP PRN (15:57)
[2018-05-24] MEDS ORDERED: Loperamide Tab 2 MG TABLET PO PRN ×2 (15:57→18:37)
[2018-05-24] MEDS ORDERED: MAG HYDROX/AL HYDROX/SIMETH 30 ML SUSP PO PRN ×2 (15:57→18:37)
[2018-05-24] MEDS ORDERED: LORazepam Inj(ETOH withdrawal) 2 MG/ML VIAL IVP PRN (15:57)
[2018-05-24] MEDS ORDERED: LIDOCAINE W/ SODIUM BICARB 0.5 ML SYR SUBD PRN ×2 (15:57→18:37)
[2018-05-24] MEDS ORDERED: oxyCODONE IR Tab 5 MG TAB PO PRN (15:57)
[2018-05-24] MEDS ORDERED: oxyCODONE-ACETAMINOPHEN 5-325 TAB PO PRN (15:57)
[2018-05-24] MEDS ORDERED: Sucralfate Tab 1 GM TAB PO PRN ×2 (15:57→18:37)
[2018-05-24] MEDS ORDERED: MAGNESIUM 400 MG/5 ML - 30 ML (MILK OF MAGNESIA) PO PRN ×2 (15:57→18:37)
[2018-05-24] MEDS ORDERED: THIAMINE 100 MG/1 ML - 2 ML IM SCH (16:00)
[2018-05-24] MEDS ORDERED: HEPARIN 5000 UNIT/1 ML SUBCUT SCH (16:00)
[2018-05-24] MEDS ORDERED: Sodium Chloride 0.9% 1,000 ML, Magnesium Sulfate 2gm (Premix) 50 ML with Multivitamin I... IV SCH ×5 (16:00)
[2018-05-24] MEDS: LORazepam Inj(ETOH withdrawal) 2 MG/ML VIAL IVP PRN ×3 (16:22→19:12)
[2018-05-24] MEDS ORDERED: HYDROmorphone 2 MG/1 ML IVP PRN (18:04)
--- NOTE | 2018-05-24 18:08 | PDOC ---
HPI - History of Present Illness History of Present Illness: Is a very nice 38-year-old gentleman was brought in by his dad they are from [place] he has a history of alcohol abuse with intermittent. Binge eating. Patient has already received Ativan his last drink was yesterday he is the disoriented the picking bugs and the with tremors I talked his dad he's had the alcohol withdrawal before they get pretty violent and with seizures. Past Medical History Medical History: 1. Alcohol abuse with alcohol withdrawal. 2. Presumably either an ulcer or alcoholic gastritis by EGD in [place]. Records of that scope are not available for review. Surgical History: 1. EGD. 2. Testicle removal due to a benign cyst. Pertinent Family History: Family history of alcoholism. Apparently mother's side of the family has coronary artery disease. Past Social History: Smokes tobacco. Denies drug use. Currently unemployed. Drinks alcohol and has been drinking alcohol since age 14. Spent 4 weeks in [employer] at one point in the past related to alcohol abuse. Tobacco Use: Smoker Current Status Unknown Do you dip or chew tobacco: Yes (occasionally) In the Past 12 Months, Have Used or Abuse Any of the Following Substance: None Medication / Allergies Allergies/Adverse Reactions: Allergies Allergy/AdvReac Type Severity Reaction Status Date / Time No Known Allergies Allergy Verified 05/24/18 16:06 Review of Systems - Review of Systems All Systems: Reviewed & No Additional Complaints Except as Stated - Cardiovascular Cardiovascular: DENIES: Negative System Review, Chest Pain, Edema, Syncope, Palpitations, Orthopnea, Paroxysmal Nocturnal Dyspnea, Other, See HPI - Gastrointestinal Gastrointestinal / Abdominal: REPORTS: Nausea, Abdominal Pain Exam - Vitals Vital Signs: Vital Signs Temperature 98 F Temperature Source Temporal Artery Scan Pulse Rate [Pulse Oximeter] 105 Pulse Rate 100 Respiratory Rate 24 Blood Pressure [Right Arm] 165/109 Blood Pressure 138/95 Pulse Ox 94 Oxygen Delivery Method Room Air Height 5 ft 6 in Weight 169 lb 9 oz - General General Appearance: No Acute Distress, Cooperative - Respiratory Respiratory Exam: POSITIVE: Clear to Auscultation - Bilaterally, Breathing Non Labored, Normal To Percussion, Normal to Percussion and Palpation - Cardiovascular Cardiovascular Exam: POSITIVE: RRR, No Murmur, No Clicks, No Gallops, No Rubs, PMI Non-Displaced - GI/Abdominal Additional GI/Abdominal Exam Details: Left lower quadrant abdominal pain - Extremities Extremities Exam: POSITIVE: No Clubbing Present, No Edema Present, No Cyanosis Present Results - Labs CBC and BMP: 05/24/18 13:30 05/24/18 13:30 Assessment and Plan - Patient Problems (1) Pancreatitis, alcoholic, acute Current Visit: Yes Status: Acute Code(s): K85.20 - Alcohol induced acute pancreatitis without necrosis or infection (2) Alcohol abuse Current Visit: No Status: Acute Code(s): F10.10 - Alcohol abuse, uncomplicated (3) Alcoholic gastritis Current Visit: No Status: Acute Code(s): K29.20 - Alcoholic gastritis without bleeding Qualifiers: (4) Delirium tremens Current Visit: No Status: Acute Code(s): F10.231 - Alcohol dependence with withdrawal delirium - Assessment / Plan Additional Assessment/Plan Details: #1 alcohol withdrawal syndrome had multiple episodes in the past with seizures and patient gets very violent and the tries to leave according to the dad. Will start Precedex drip and Ativan with CIWA protocol admit to ICU discussed the case. EICU which also agrees with ICU admission because of his pancreatitis as well patient will need to be sedated and kept nothing by mouth. IV fluids pain management
[2018-05-24] MEDS: Dexmedetomidine/NS 400 MCG/100 ML INFUS..BTL IV SCH (19:13)
[2018-05-24] MEDS ORDERED: LIDOCAINE HCL 2 % 10 ML JELLY URO-JECT TOPICAL ONE (19:32)
--- NOTE | 2018-05-24 19:52 | PDOC ---
Abdomen/Flank HPI - General Chief Complaint: Abdomen Pain Stated Complaint: ETOH/ABD PAIN Date Seen by Provider: 05/24/18 Time Seen by Provider: 13:10 Source: POSITIVE: Patient Exam Limitations: POSITIVE: No limitations Nurse's Notes Reviewed & Considered: Yes - History of Present Illness Initial Comments: The patient is a 38-year-old male who presents to the emergency department with complaints of epigastric abdominal pain and vomiting. He has a history of alcohol abuse and actually had been sober for the past 6 months or so. He started drinking approximately 10-14 days ago and for the past several days has developed increased epigastric abdominal pain associated with vomiting. He states that he has been drinking approximately 1/5 of hard alcohol per day since he started drinking this time. He has not been vomiting any blood and denies any blood in his stool. He has not had any fevers. He does feel very anxious and shaky. His last drink was earlier this morning. He states that he does have a history of ulcers as well as pancreatitis. - Patient Allergies Allergies/Adverse Reactions: Allergies Allergy/AdvReac Type Severity Reaction Status Date / Time No Known Allergies Allergy Verified 05/24/18 16:06 Past Medical History - heen HEENT History: Denies History Cardiovascular History: Denies History Respiratory History: Denies History Gastrointestinal History: Pancreatitis, Other (please comment) Additional Gastrointestinal History: Patient recently had endoscopy, states the doctor told him his stomach "looked like hamburger" Genitourinary History: Denies History Endocrine History: Denies History Musculoskeletal History: Denies History Prosthesis or Implant: No Neurological History: Denies History Blood Disorders: Denies History 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 alcohol abuse History of Sexually Transmitted Diseases: No Cancer History: Denies History In Past Year Been Physically Harmed or Verbally Threatened: No History of MDRO: No History of Other Communicable Diseases: No Tobacco Use: Smoker Current Status Unknown Alcohol Use: None Type of alcohol normally used: Hard Liquor In the Past 12 Months, Have Used or Abuse Any Substance: None Previous Surgical History: Yes Type / Date of Surgery: testicle removed Anesthesia Reactions: No Malignant Hyperthermia: No Significant Family History: Cancer Past Medical History Reviewed: Reviewed - No Changes ROS - Limitations ROS Limitations: No Limitations Constitution: REPORTS: Chills. DENIES: Fever Cardiovascular: REPORTS: Denies Cardiac Symptoms Respiratory: REPORTS: Denies Resp Symptoms Neurological: DENIES: Numbness, Weakness Gastrointestinal: REPORTS: Abdominal Pain, Nausea, Vomitting. DENIES: Diarrhea, Black Stools, Bloody Stools Endocrine: REPORTS: Denies Symptoms Musculoskeletal: REPORTS: Denies MS Symptoms Genitourinary: REPORTS: Denies Symptoms Eyes: REPORTS: Denies Symptoms ENT: REPORTS: Denies Symptoms Skin: DENIES: Rash Abdominal/Flank Pain PE - General Appearance General Appearance: POSITIVE: Other (The patient is awake and alert and appears quite anxious) - HEENT HEENT: POSITIVE: Head Inspection Nml, Eyes Inspection Nml, Ears Inspection Nml, Pharynx Inspect. Nml, Dry Mucous Membranes - Neck Neck: POSITIVE: Normal Inspection. NEGATIVE: Lymphadenopathy - Respiratory Respiratory: POSITIVE: No Respiratory Distress, Breath Sounds Normal - Cardiovascular Cardiovascular: POSITIVE: Regular Rate and Rhythm, Heart Sounds Normal Peripheral Pulses: Dorsalis-pedis (R): 2+, Dorsalis-pedis (L): 2+ - Abdomen Abdomen: Soft: (All Quadrants), Normal Bowel Sounds: (All Quadrants), No Guarding: (All Quadrants), No Rebound: (All Quadrants), No Distention: (All Quadrants) Additional Abdominal Details: He does have tenderness in the epigastric region as well as some generalized abdominal tenderness and slight distention - Back Back: POSITIVE: Normal Inspection - Skin Skin: POSITIVE: Intact, No Rash - Extremities Extremity: Normal ROM: (All Extremities), Normal Inspection: (All Extremities) - Neurological Neurological: POSITIVE: Oriented X3, Motor Normal, Sensation Normal Abdomen Progress - Results Reviewed by me Xrays/CTs/US Reviewed by me: Yes Discussed with Radiologist: Yes Radiology Findings: CT scan of the abdomen and pelvis with IV contrast shows no acute intra-abdominal findings per radiologist. Lab Results Reviewed by Me: Yes CBC and BMP: 05/24/18 13:30 05/24/18 13:30 Lab Results:: Laboratory Results 05/24/18 05/24/18 05/24/18 13:30 13:30 13:30 WBC 6.01 RBC 5.73 Hgb 15.3 Hct 42.6 MCV 74.3 L MCH 26.7 L MCHC 35.9 RDW Std Deviation 41.0 RDW Coeff of Jacqueline 15.4 H Plt Count 244 MPV 8.4 Immature Gran % (Auto) 0.2 Neut % (Auto) 67.7 Lymph % (Auto) 28.0 [place] % (Auto) 3.3 L Eos % (Auto) 0.3 Baso % (Auto) 0.5 Immature Gran # (Auto) 0.01 Neut # (Auto) 4.07 Lymph # (Auto) 1.68 [place] # (Auto) 0.20 L Eos # (Auto) 0.02 Baso # (Auto) 0.03 WBC Morphology Comment Normal morphology Plt Morphology Comment Normal morphology RBC Morph Comment Normal morphology Sodium 143 Potassium 4.1 Chloride 103 Carbon Dioxide 24 Anion Gap 16 BUN 13 Creatinine 0.8 Estimated GFR > 60 BUN/Creatinine Ratio 16.25 Glucose 109 Calculated Osmolality 296.0 H Calcium 8.4 L Magnesium 1.8 Total Bilirubin 0.9 AST 54 ALT 34 Alkaline Phosphatase 106 C-Reactive Protein < 0.5 Total Protein 8.4 H Albumin 5.1 H Globulin 3.3 Albumin/Globulin Ratio 1.50 Amylase 174 H Lipase 370 H Ur Collection Type Urine Color Urine Clarity Urine pH Ur Specific [place] U Specif Grav (Refrac) Urine Protein Urine Glucose (UA) Urine Ketones Urine Occult Blood Urine Nitrate Urine Bilirubin Urine Urobilinogen Ur Leukocyte Esterase Ur Culture Indicated? Urine Opiates Screen Ur Buprenorphine Ur Oxycodone Screen Urine Methadone Screen Ur Propoxyphene Screen Barbiturate Screen U Tricyclic Antidepress Phencyclidine Screen Amphetamines Screen U Methamphetamines Scrn Benzodiazepines Screen Cocaine Screen U Marijuana (THC) Screen Serum Alcohol 281 H 05/24/18 05/24/18 14:55 14:55 WBC RBC Hgb Hct MCV MCH MCHC RDW Std Deviation RDW Coeff of Jacqueline Plt Count MPV Immature Gran % (Auto) Neut % (Auto) Lymph % (Auto) [place] % (Auto) Eos % (Auto) Baso % (Auto) Immature Gran # (Auto) Neut # (Auto) Lymph # (Auto) [place] # (Auto) Eos # (Auto) Baso # (Auto) WBC Morphology Comment Plt Morphology Comment RBC Morph Comment Sodium Potassium Chloride Carbon Dioxide Anion Gap BUN Creatinine Estimated GFR BUN/Creatinine Ratio Glucose Calculated Osmolality Calcium Magnesium Total Bilirubin AST ALT Alkaline Phosphatase C-Reactive Protein Total Protein Albumin Globulin Albumin/Globulin Ratio Amylase Lipase Ur Collection Type Voided specimen Clean catch urine Urine Color Yellow Urine Clarity Clear Urine pH 8.0 Ur Specific [place] 1.015 U Specif Grav (Refrac) 1.015 Urine Protein Negative Urine Glucose (UA) Negative Urine Ketones Negative Urine Occult Blood Negative Urine Nitrate Negative Urine Bilirubin Negative Urine Urobilinogen 0.2 Ur Leukocyte Esterase Negative Ur Culture Indicated? Culture not set Urine Opiates Screen Negative Ur Buprenorphine Negative Ur Oxycodone Screen Negative Urine Methadone Screen Negative Ur Propoxyphene Screen Negative Barbiturate Screen Negative U Tricyclic Antidepress Negative Phencyclidine Screen Negative Amphetamines Screen Negative U Methamphetamines Scrn Negative Benzodiazepines Screen Negative Cocaine Screen Negative U Marijuana (THC) Screen Negative Serum Alcohol - Patient's Progress MDM / ED Course: Shortly after arrival an IV was established and the patient did receive a banana bag. He also received Zofran 4 mg IV, Protonix 40 mg IV and Ativan 1 mg IV. He had continued pain and required several doses of fentanyl. He also had recurrent dry heaves and vomiting and received a second dose of Zofran. Lab work reveals a blood alcohol of 280. Liver enzymes are normal. Amylase and lipase are both mildly elevated. CT scan of the abdomen and pelvis shows no acute intra-abdominal findings. The patient appears to have mild pancreatitis likely related to recent alcohol abuse. He likely has some component of gastritis or ulcer as well. The patient will be admitted per Dr. Pizano for further treatment and evaluation. - Consult Counseled: POSITIVE: Patient, RE: Lab Results, RE: Radiology Results, RE: DX, RE: Need for F/U Patient Care Time - Estimated PCT Patient Care Time (In Minutes): 35 Vital Signs - Recent Vital Signs Vital Signs: Vital Signs (Last 8 hours) Temp Pulse Pulse Resp BP BP Pulse Ox 05/24/18 15:57 97.1 F 105 H 105 H 18 165/109 165/109 94 05/24/18 13:05 97.1 F 105 H 105 H 20 156/113 156/113 99 - VS Reviewed Vital Signs Reviewed: Yes Discharge Clinical Impression: Abdominal pain, Alcohol abuse, Alcoholic gastritis, Pancreatitis, alcoholic, acute Discharge Disposition: Admit to Observation Condition: Stable
[2018-05-24] MEDS ORDERED: MAGNESIUM OXIDE 400 MG TABLET PO SCH (21:00)
[2018-05-24] MEDS ORDERED: oxyCODONE-ACETAMINOPHEN 5-325 TAB PO SCH (21:00)
[2018-05-24] MEDS: MAGNESIUM OXIDE 400 MG TABLET PO SCH (22:04)
[2018-05-24] MEDS ORDERED: LIDOCAINE HCL 2 % 10 ML JELLY URO-JECT TOPICAL PRN (22:07)
[2018-05-25] MEDS: HEPARIN 5000 UNIT/1 ML SUBCUT SCH ×3 (00:16→15:49)
[2018-05-25] MEDS: Lactated Ringers 1,000 ML PRIMARY IV SCH ×4 (00:17→20:30)
[2018-05-25] MEDS ORDERED: fentaNYL Inj 100 MCG/2 ML VIAL IVP ONE (02:31)
[2018-05-25] MEDS: LORazepam Inj(ETOH withdrawal) 2 MG/ML VIAL IVP PRN ×8 (02:47→22:55)
[2018-05-25] MEDS: Dexmedetomidine/NS 400 MCG/100 ML INFUS..BTL IV SCH ×3 (07:17→21:57)
[2018-05-25] MEDS ORDERED: PANTOPRAZOLE IV 40 MG VIAL IVP SCH ×2 (09:00)
[2018-05-25] MEDS ORDERED: THIAMINE 100 MG/1 ML - 2 ML IM SCH (09:00)
--- NOTE | 2018-05-25 09:05 | PDOC(PROG) ---
Interval History: Patient says he is been through this before he usually takes 5 days. Complaining of abdominal pain. We discussed about clear liquids and nothing by mouth. He agrees with the being nothing by mouth for a while considering his pancreatitis denies chest pain nausea or vomiting patient is heavily sedated and Precedex drip and Ativan and is still articulating. Objective : Data - Labs CBC and BMP: 05/24/18 13:30 05/24/18 13:30 Objective : Exam - General General Appearance: Cooperative - Respiratory Respiratory Exam: Clear to Auscultation - Bilaterally, Breathing Non Labored, Normal To Percussion, Normal to Percussion and Palpation - Cardiovascular Cardiovascular Exam: RRR, No Murmur, No Clicks, No Gallops, No Rubs, PMI Non- Displaced - GI/Abdominal GI/Abdominal Exam: Normal Bowel Sounds, Non Distended, No Masses, No Hepatomegaly, No Splenomegaly, No Organomegaly Additional GI/Abdominal Exam Details: Mild to moderate abdominal pain diffusely - Extremities Extremities Exam: No Clubbing Present, No Edema Present, No Cyanosis Present - Neurological Neurological Exam: Alert Assessment and Plan - Patient Problems (1) Pancreatitis, alcoholic, acute Current Visit: Yes Status: Acute Comment: IV fluids, pain control lipase 300 range could be at his pancreas is burned out and is not producing patient has abdominal pain CT scan of the abdomen and pelvis yesterday did not reveal any acute abnormality Code(s): K85.20 - Alcohol induced acute pancreatitis without necrosis or infection (2) Alcohol abuse Current Visit: Yes Status: Acute Code(s): F10.10 - Alcohol abuse, uncomplicated (3) Alcoholic gastritis Current Visit: Yes Status: Acute Comment: Continue IV Protonix Code(s): K29.20 - Alcoholic gastritis without bleeding Qualifiers: (4) Delirium tremens Current Visit: No Status: Acute Comment: Continue Ativan and Precedex drip discussed with nursing Мария Code(s): F10.231 - Alcohol dependence with withdrawal delirium
[2018-05-25] MEDS: MAGNESIUM OXIDE 400 MG TABLET PO SCH ×2 (09:09→20:30)
[2018-05-25] MEDS: HYDROmorphone 2 MG/1 ML IVP PRN ×4 (09:10→20:40)
[2018-05-25] MEDS: PANTOPRAZOLE IV 40 MG VIAL IVP SCH ×2 (09:21→20:40)
[2018-05-25] MEDS ORDERED: Sodium Chloride 0.9% 1,000 ML with Multivitamin Inj 10 ML, Thiamine Inj 100 MG, Folic A... IV SCH ×5 (11:00)
[2018-05-25] MEDS: Sodium Chloride 0.9% 1,000 ML with Multivitamin Inj 10 ML, Thiamine Inj 100 MG, Folic A... IV SCH ×5 (12:21)
[2018-05-25] MEDS ORDERED: LORazepam 2 MG/1 ML VIAL IVP PRN (20:41)
[2018-05-25] MEDS: D5-1/2NS 1,000 ML PRIMARY IV SCH (21:57)
[2018-05-26] MEDS: HYDROmorphone 2 MG/1 ML IVP PRN ×4 (00:33→17:45)
[2018-05-26] MEDS: HEPARIN 5000 UNIT/1 ML SUBCUT SCH ×4 (00:33→23:16)
[2018-05-26] MEDS: LORazepam Inj(ETOH withdrawal) 2 MG/ML VIAL IVP PRN ×8 (02:47→23:29)
[2018-05-26] MEDS: Dexmedetomidine/NS 400 MCG/100 ML INFUS..BTL IV SCH ×5 (04:26→23:14)
[2018-05-26 04:56] LABS: BASOPHILS # (AUTO) 0.01 10*3/UL; BASOPHILS % (AUTO) 0.2 % (0-1); EOSINOPHILS # (AUTO) 0.07 10*3/UL; EOSINOPHILS % (AUTO) 1.7 % (0-8); Hematocrit [HCT] 33.8 % (42.0-52.0); Hemoglobin [HGB] 11.7 g/dL (14.0-18.0); LYMPHOCYTES # (AUTO) 0.98 10*3/uL; MEAN CORPUSCULAR HEMOGLOBIN 26.7 PG (27-31); MEAN CORPUSCULAR HGB CONC 34.6 g/dL (33-37); MEAN CORPUSCULAR VOLUME 77.2 FL (80-90); MEAN PLATELET VOLUME 9.5 FL (7.4-12.2); MONOCYTES # (AUTO) 0.16 10*3/UL (0.3-0.8); MONOCYTES % (AUTO) 3.8 % (5-15); NEUTROPHILS # (AUTO) 2.93 10*3/UL; NEUTROPHILS % (AUTO) 70.5 % (50-80); RED BLOOD COUNT 4.38 10^6/uL (4.70-6.10)
[2018-05-26 05:23] LABS: BLOOD UREA NITROGEN 13 mg/dL (7-22); BUN/CREATININE RATIO 16.25 (6-20); LIPASE 305 IU/L (23-300); SERUM ALBUMIN 3.6 g/dL (3.5-4.8)
[2018-05-26 05:27] LABS: PLATELET MORPHOLOGY COMMENT NORMAL MORPHOLOGY (NORM); RBC MORPHOLOGY COMMENT NORMAL MORPHOLOGY (NORM); WBC MORPHOLOGY COMMENT NORMAL MORPHOLOGY (NORM)
--- NOTE | 2018-05-26 08:04 | PDOC(PROG) ---
Date of Service: 05/26/18 Time of Service: 08:20 Interval History: Subjective Patient said he feel confused. He knows though he is in the hospital. He said he came in because he started drinking again. Apparently he's been drinking heavily around [place].. He Said he's been drinking vodka with friend. He was sober maybe for about 6 months. He came in addition to alcohol withdrawal came in also with intoxication and abdominal pain. His abdominal pain seemed to be less now. No vomiting. He is very sleepy but arousable. Difficult to understand him. Objective : Data - Labs CBC and BMP: 05/26/18 04:30 05/26/18 04:30 Objective : Exam - General Additional General Exam Details: Very sleepy. - Head Head Exam: Normal Inspection - Eye Eye Exam: Normal Appearance - ENT ENT Exam: Normal Exam - Neck Neck Exam: Normal Inspection - Respiratory Respiratory Exam: Clear to Auscultation - Bilaterally - Cardiovascular Cardiovascular Exam: RRR - GI/Abdominal GI/Abdominal Exam: Normal Bowel Sounds, Non Tender, Non Distended, Soft, No Organomegaly - Rectal Rectal Exam: Deferred - External Exam: Deferred Exam: Deferred - Extremities Extremities Exam: Normal Inspection - Back Back Exam: Normal Inspection - Neurological Neurological Exam: CN II-XII Intact, No Facial Droop, Speech Intact / Clear, Moves All Extremities Equally Additional Neurological Exam Details: Sleepy but arousable. He knows he is is in the hospital. - Psychiatric Psychiatric Exam: Flat Affect - Integumentary Integumentary Exam: Normal Color Assessment and Plan - Patient Problems (1) Delirium tremens Current Visit: No Status: Acute Comment: Continue the Precedex but may be will cut back a little bit to see whether he can be more awake. Continue CIWA per protocol. We'll cut back on the pain medication. Code(s): F10.231 - Alcohol dependence with withdrawal delirium (2) Alcoholic gastritis Current Visit: Yes Status: Acute Comment: He is on Protonix continue Code(s): K29.20 - Alcoholic gastritis without bleeding Qualifiers: (3) Pancreatitis, alcoholic, acute Current Visit: Yes Status: Acute Comment: Lipase is a little bit down. The elevation was not that high and the CT was negative. Will start the ice chips and see if he can tolerate that will advance diet gradually. Code(s): K85.20 - Alcohol induced acute pancreatitis without necrosis or infe ction
[2018-05-26] MEDS: D5-1/2NS 1,000 ML PRIMARY IV SCH ×2 (08:15→21:22)
[2018-05-26] MEDS: MAGNESIUM OXIDE 400 MG TABLET PO SCH ×2 (09:43→21:18)
[2018-05-26] MEDS: PANTOPRAZOLE IV 40 MG VIAL IVP SCH ×2 (09:43→21:22)
[2018-05-26] MEDS: Sodium Chloride 0.9% 1,000 ML with Multivitamin Inj 10 ML, Thiamine Inj 100 MG, Folic A... IV SCH ×5 (11:04)
[2018-05-26] MEDS: Sodium Chloride 0.9% 500 ML PRIMARY IV SCH (13:49)
[2018-05-26] MEDS ORDERED: Sodium Chloride 0.9% 500 ML ONE (13:53)
[2018-05-26] MEDS ORDERED: LORazepam 2 MG/1 ML VIAL IVP ONE (15:52)
[2018-05-26] MEDS ORDERED: PHENOBARBITAL SODIUM 65 MG/1 ML VIAL IVP ONE (19:11)
[2018-05-27] MEDS: Dexmedetomidine/NS 400 MCG/100 ML INFUS..BTL IV SCH ×6 (02:55→21:53)
[2018-05-27] MEDS: HYDROmorphone 2 MG/1 ML IVP PRN ×4 (04:23→23:59)
[2018-05-27] MEDS: Sodium Chloride 0.9% 500 ML PRIMARY IV SCH ×2 (04:26→20:30)
[2018-05-27 05:52] LABS: BASOPHILS # (AUTO) 0.01 10*3/UL; BASOPHILS % (AUTO) 0.3 % (0-1); EOSINOPHILS # (AUTO) 0.13 10*3/UL; EOSINOPHILS % (AUTO) 3.6 % (0-8); Hematocrit [HCT] 35.7 % (42.0-52.0); Hemoglobin [HGB] 12.7 g/dL (14.0-18.0); LYMPHOCYTES # (AUTO) 0.79 10*3/uL; MEAN CORPUSCULAR HEMOGLOBIN 26.8 PG (27-31); MEAN CORPUSCULAR HGB CONC 35.6 g/dL (33-37); MEAN CORPUSCULAR VOLUME 75.5 FL (80-90); MEAN PLATELET VOLUME 9.7 FL (7.4-12.2); MONOCYTES # (AUTO) 0.13 10*3/UL (0.3-0.8); MONOCYTES % (AUTO) 3.6 % (5-15); NEUTROPHILS # (AUTO) 2.55 10*3/UL; NEUTROPHILS % (AUTO) 70.6 % (50-80); RED BLOOD COUNT 4.73 10^6/uL (4.70-6.10)
[2018-05-27 05:59] LABS: PLATELET MORPHOLOGY COMMENT NORMAL MORPHOLOGY (NORM); RBC MORPHOLOGY COMMENT NORMAL MORPHOLOGY (NORM); WBC MORPHOLOGY COMMENT NORMAL MORPHOLOGY (NORM)
[2018-05-27 06:08] LABS: BLOOD UREA NITROGEN 8 mg/dL (7-22); BUN/CREATININE RATIO 11.42 (6-20); LIPASE 117 IU/L (23-300); SERUM ALBUMIN 3.3 g/dL (3.5-4.8)
[2018-05-27] MEDS: LORazepam Inj(ETOH withdrawal) 2 MG/ML VIAL IVP PRN ×5 (07:15→18:38)
[2018-05-27] MEDS ORDERED: D5-1/2NS + 20mEq KCL 1,000 ML PRIMARY IV SCH (07:45)
--- NOTE | 2018-05-27 07:53 | PDOC(PROG) ---
Date of Service: 05/27/18 Time of Service: 08:00 Interval History: Subjective Patient is still confused hallucinating at times. He knew the year, did not know the day, thought still April. Hard to understand him. Objective : Data - Labs CBC and BMP: 05/27/18 04:30 05/27/18 04:30 Objective : Exam - General Additional General Exam Details: Hallucinating, Cooperative though. - Head Head Exam: Normal Inspection - Eye Eye Exam: Normal Appearance - ENT ENT Exam: Normal Exam - Neck Neck Exam: Normal Inspection - Respiratory Respiratory Exam: Clear to Auscultation - Bilaterally - Cardiovascular Cardiovascular Exam: RRR - GI/Abdominal GI/Abdominal Exam: Normal Bowel Sounds, Non Tender, Non Distended, Soft, No Organomegaly - Rectal Rectal Exam: Deferred - External Exam: Deferred Exam: Deferred - Extremities Extremities Exam: Normal Inspection - Back Back Exam: Normal Inspection - Neurological Neurological Exam: CN II-XII Intact, No Facial Droop, Moves All Extremities Equally Additional Neurological Exam Details: Arousable, hallucinating. Difficult to understand him. The year thought that since April though. Could not tell me the day. He knew that he is in [place]. - Psychiatric Psychiatric Exam: Flat Affect - Integumentary Integumentary Exam: Normal Color Assessment and Plan - Patient Problems (1) Delirium tremens Current Visit: No Status: Acute Comment: Continue Precedex drip, continue CIWA protocol, I did write for phenobarbital however he did not receive it yesterday. will get it today if he become agitated. Code(s): F10.231 - Alcohol dependence with withdrawal delirium (2) Alcoholic gastritis Current Visit: Yes Status: Acute Comment: He is on Protonix continue Code(s): K29.20 - Alcoholic gastritis without bleeding Qualifiers: (3) Pancreatitis, alcoholic, acute Current Visit: Yes Status: Acute Comment: His lipase is down to normal. However his mentation is not very clear to move to full diet. Code(s): K85.20 - Alcohol induced acute pancreatitis without necrosis or infection (4) Alcohol abuse Current Visit: Yes Status: Acute Comment: He did receive banana bag yesterday and the day before we'll put him on folic acid and thiamine today. Code(s): F10.10 - Alcohol abuse, uncomplicated
[2018-05-27] MEDS ORDERED: FOLIC ACID IV ONE ×3 (08:15)
[2018-05-27] MEDS ORDERED: THIAMINE IV ONE ×3 (08:15)
[2018-05-27] MEDS ORDERED: D5 NS IV ONE ×3 (08:15)
[2018-05-27] MEDS ORDERED: KCL IV ONE ×3 (08:15)
[2018-05-27] MEDS: D5-1/2NS 1,000 ML PRIMARY IV SCH (08:49)
[2018-05-27] MEDS ORDERED: PHENOBARBITAL SODIUM 65 MG/1 ML VIAL IVP ONE ×4 (09:00→12:30)
[2018-05-27] MEDS ORDERED: FOLIC ACID 5 MG/1 ML - 10 ML IVP SCH (09:00)
[2018-05-27] MEDS: PANTOPRAZOLE IV 40 MG VIAL IVP SCH ×2 (10:23→20:25)
[2018-05-27] MEDS: HEPARIN 5000 UNIT/1 ML SUBCUT SCH ×2 (10:23→16:48)
[2018-05-27] MEDS: MAGNESIUM OXIDE 400 MG TABLET PO SCH ×2 (14:18→20:12)
[2018-05-27] MEDS: D5-NS + 20mEq KCL 1,000 ML PRIMARY IV SCH (18:30)
[2018-05-28] MEDS: HEPARIN 5000 UNIT/1 ML SUBCUT SCH ×4 (00:30→23:13)
[2018-05-28] MEDS: LORazepam Inj(ETOH withdrawal) 2 MG/ML VIAL IVP PRN ×9 (01:36→22:17)
[2018-05-28] MEDS: Dexmedetomidine/NS 400 MCG/100 ML INFUS..BTL IV SCH ×4 (01:36→12:18)
[2018-05-28] MEDS: D5-NS + 20mEq KCL 1,000 ML PRIMARY IV SCH ×3 (04:50→23:08)
[2018-05-28] MEDS: HYDROmorphone 2 MG/1 ML IVP PRN ×2 (05:20→10:20)
[2018-05-28 05:30] LABS: BASOPHILS # (AUTO) 0.01 10*3/UL; BASOPHILS % (AUTO) 0.2 % (0-1); EOSINOPHILS # (AUTO) 0.14 10*3/UL; EOSINOPHILS % (AUTO) 2.8 % (0-8); Hematocrit [HCT] 35.9 % (42.0-52.0); Hemoglobin [HGB] 12.5 g/dL (14.0-18.0); LYMPHOCYTES # (AUTO) 0.83 10*3/uL; MEAN CORPUSCULAR HEMOGLOBIN 26.5 PG (27-31); MEAN CORPUSCULAR HGB CONC 34.8 g/dL (33-37); MEAN CORPUSCULAR VOLUME 76.1 FL (80-90); MEAN PLATELET VOLUME 9.2 FL (7.4-12.2); MONOCYTES # (AUTO) 0.24 10*3/UL (0.3-0.8); MONOCYTES % (AUTO) 4.8 % (5-15); NEUTROPHILS # (AUTO) 3.79 10*3/UL; NEUTROPHILS % (AUTO) 75.6 % (50-80); RED BLOOD COUNT 4.72 10^6/uL (4.70-6.10)
[2018-05-28 06:05] LABS: PLATELET MORPHOLOGY COMMENT NORMAL MORPHOLOGY (NORM); RBC MORPHOLOGY COMMENT NORMAL MORPHOLOGY (NORM); WBC MORPHOLOGY COMMENT NORMAL MORPHOLOGY (NORM)
[2018-05-28 06:45] LABS: BLOOD UREA NITROGEN 6 mg/dL (7-22); BUN/CREATININE RATIO 8.57 (6-20); SERUM ALBUMIN 3.5 g/dL (3.5-4.8)
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
[2018-05-28] MEDS: PANTOPRAZOLE IV 40 MG VIAL IVP SCH ×2 (09:08→20:42)
[2018-05-28] MEDS: MAGNESIUM OXIDE 400 MG TABLET PO SCH (09:09)
[2018-05-28] MEDS ORDERED: PHENOBARBITAL SODIUM 65 MG/1 ML VIAL IVP ONE ×2 (13:55→16:10)
[2018-05-28] MEDS ORDERED: LORazepam 1 mg tab (ETOH withdrawal) PO PRN (13:56)
[2018-05-28] MEDS: Sodium Chloride 0.9% 500 ML PRIMARY IV SCH (17:16)
[2018-05-29] MEDS: LORazepam Inj(ETOH withdrawal) 2 MG/ML VIAL IVP PRN ×6 (00:32→12:21)
[2018-05-29 04:47] LABS: BASOPHILS # (AUTO) 0 10*3/UL; BASOPHILS % (AUTO) 0 % (0-1); EOSINOPHILS % (AUTO) 2.4 % (0-8); Hematocrit [HCT] 35.2 % (42.0-52.0); Hemoglobin [HGB] 12.2 g/dL (14.0-18.0); LYMPHOCYTES # (AUTO) 0.68 10*3/uL; MEAN CORPUSCULAR HEMOGLOBIN 26.5 PG (27-31); MEAN CORPUSCULAR HGB CONC 34.7 g/dL (33-37); MEAN CORPUSCULAR VOLUME 76.5 FL (80-90); MEAN PLATELET VOLUME 9.4 FL (7.4-12.2); MONOCYTES # (AUTO) 0.25 10*3/UL (0.3-0.8); MONOCYTES % (AUTO) 6.1 % (5-15)
[2018-05-29 04:49] LABS: PLATELET MORPHOLOGY COMMENT NORMAL MORPHOLOGY (NORM); RBC MORPHOLOGY COMMENT NORMAL MORPHOLOGY (NORM); WBC MORPHOLOGY COMMENT NORMAL MORPHOLOGY (NORM)
[2018-05-29 05:17] LABS: BLOOD UREA NITROGEN 5 mg/dL (7-22); BUN/CREATININE RATIO 7.14 (6-20); SERUM ALBUMIN 3.5 g/dL (3.5-4.8)
[2018-05-29] MEDS: HYDROmorphone 2 MG/1 ML IVP PRN ×5 (07:29→21:44)
--- NOTE | 2018-05-29 08:03 | PDOC(PROG) ---
Date of Service: 05/29/18 Time of Service: 08:00 Interval History: Subjective Patient seemed to be more calm today compared to yesterday. He is more cooperative. He knows where he is at. He can tell me his name and his date of . He was complaining earlier from abdominal pain so received some Dilaud id before I saw him. Objective : Data - Labs CBC and BMP: 05/29/18 04:30 05/29/18 04:30 Objective : Exam - General General Appearance: Cooperative Additional General Exam Details: Sleepy but easily arousable - Head Head Exam: Normal Inspection - Eye Eye Exam: Normal Appearance - ENT ENT Exam: Normal Exam - Neck Neck Exam: Normal Inspection - Respiratory Respiratory Exam: Clear to Auscultation - Bilaterally - Cardiovascular Cardiovascular Exam: RRR - GI/Abdominal GI/Abdominal Exam: Normal Bowel Sounds, Non Tender, Non Distended, Soft, No Organomegaly - Rectal Rectal Exam: Deferred - External Exam: Deferred Exam: Deferred - Extremities Extremities Exam: Normal Inspection - Back Back Exam: Normal Inspection - Neurological Additional Neurological Exam Details: He still sleepy but easily arousable andc ooperative. move All of his limbs there is no restriction noted and no deficit. - Psychiatric Psychiatric Exam: Flat Affect - Integumentary Integumentary Exam: Normal Color Assessment and Plan - Patient Problems (1) Delirium tremens Current Visit: No Status: Acute Comment: I think he is less agitated today compared to yesterday. Will try to taper the Precedex gradually and see his response. We'll try to maintain his treatment with Ativan. Code(s): F10.231 - Alcohol dependence with withdrawal delirium (2) Alcoholic gastritis Current Visit: Yes Status: Acute Comment: Continue Protonix Code(s): K29.20 - Alcoholic gastritis without bleeding Qualifiers: (3) Pancreatitis, alcoholic, acute Current Visit: Yes Status: Acute Comment: Seem to be resolved. He is hungry. We'll try clear liquid and see if he is more awake and tolerate that then will advance his diet. Code(s): K85.20 - Alcohol induced acute pancreatitis without necrosis or infection (4) Alcohol abuse Current Visit: Yes Status: Acute Code(s): F10.10 - Alcohol abuse, uncomplicated
[2018-05-29] MEDS: D5-NS + 20mEq KCL 1,000 ML PRIMARY IV SCH ×3 (08:23→14:01)
[2018-05-29] MEDS ORDERED: Sodium Chloride 0.9% 0 ML ONE (08:28)
[2018-05-29] MEDS: PANTOPRAZOLE IV 40 MG VIAL IVP SCH (09:19)
[2018-05-29] MEDS: HEPARIN 5000 UNIT/1 ML SUBCUT SCH ×3 (09:19→23:08)
[2018-05-29] MEDS: Sodium Chloride 0.9% 500 ML PRIMARY IV SCH (13:54)
[2018-05-29] MEDS ORDERED: LIDOCAINE W/ SODIUM BICARB 0.5 ML SYR SUBD PRN (16:07)
[2018-05-29] MEDS ORDERED: MAGNESIUM 400 MG/5 ML - 30 ML (MILK OF MAGNESIA) PO PRN (16:07)
[2018-05-29] MEDS ORDERED: MAG HYDROX/AL HYDROX/SIMETH 30 ML SUSP PO PRN (16:07)
[2018-05-29] MEDS ORDERED: Loperamide Tab 2 MG TABLET PO PRN (16:07)
[2018-05-29] MEDS ORDERED: LORazepam 2 MG/1 ML VIAL IVP PRN (16:07)
[2018-05-29] MEDS ORDERED: LORazepam Inj(ETOH withdrawal) 2 MG/ML VIAL IVP PRN (16:07)
[2018-05-29] MEDS ORDERED: LIDOCAINE HCL 2 % 10 ML JELLY URO-JECT TOPICAL PRN (16:07)
[2018-05-29] MEDS: oxyCODONE IR Tab 5 MG TAB PO PRN ×2 (16:32→20:54)
[2018-05-29] MEDS: LORazepam 1 mg tab (ETOH withdrawal) PO PRN ×4 (16:32→23:08)
[2018-05-30] MEDS: oxyCODONE IR Tab 5 MG TAB PO PRN ×6 (00:58→21:08)
[2018-05-30] MEDS: LORazepam 1 mg tab (ETOH withdrawal) PO PRN ×2 (01:10→03:06)
[2018-05-30] MEDS: HYDROmorphone 2 MG/1 ML IVP PRN ×2 (02:23→07:00)
[2018-05-30] MEDS: PANTOPRAZOLE 40 MG TABLET PO SCH (07:00)
[2018-05-30] MEDS: Multivitamin Tab 1 TAB PO SCH (08:56)
[2018-05-30] MEDS: FOLIC ACID 1 MG TABLET PO SCH (08:56)
[2018-05-30] MEDS: HEPARIN 5000 UNIT/1 ML SUBCUT SCH ×2 (08:56→16:29)
[2018-05-30] MEDS: Thiamine Tab 100 MG TAB PO SCH (08:56)
--- NOTE | 2018-05-30 09:32 | PDOC(PROG) ---
Date of Service: 05/30/18 Time of Service: 09:30 Interval History: Subjective he is complaining from abdominal pain he said it's not better from yesterday. To me he looks much better overall compared to the previous days. He said he vomited today we don't have a documentation of it. Objective : Data - Labs CBC and BMP: 05/29/18 04:30 05/29/18 04:30 Objective : Exam - General General Appearance: No Acute Distress, Cooperative - Head Head Exam: Normal Inspection - Eye Eye Exam: Normal Appearance - ENT ENT Exam: Normal Exam - Neck Neck Exam: Normal Inspection - Respiratory Respiratory Exam: Clear to Auscultation - Bilaterally - Cardiovascular Cardiovascular Exam: RRR - GI/Abdominal GI/Abdominal Exam: Normal Bowel Sounds, Non Tender, Non Distended, Soft, No Organomegaly - Rectal Rectal Exam: Deferred - External Exam: Deferred - Extremities Extremities Exam: Normal Inspection - Back Back Exam: Normal Inspection - Neurological Neurological Exam: Alert, Oriented x 3, CN II-XII Intact, No Facial Droop, Speech Intact / Clear, Moves All Extremities Equally - Psychiatric Psychiatric Exam: Normal Affect Assessment and Plan - Patient Problems (1) Delirium tremens Current Visit: No Status: Acute Comment: This is resolved Code(s): F10.231 - Alcohol dependence with withdrawal delirium (2) Alcoholic gastritis Current Visit: Yes Status: Acute Comment: Improving. He is on Protonix continue Code(s): K29.20 - Alcoholic gastritis without bleeding Qualifiers: (3) Pancreatitis, alcoholic, acute Current Visit: Yes Status: Acute Comment: This is also improved. I did tell him we'll stop the IV pain medications. we were thinking of sending him home however he said nobody will pick him up today and the fact that he said he vomited will watch him another day but I think likely home tomorrow. Will use oral pain medication for him. Code(s): K85.20 - Alcohol induced acute pancreatitis without necrosis or infection
[2018-05-30] MEDS: ONDANSETRON 4 MG/2 ML VIAL IVP PRN ×2 (11:25→21:12)
[2018-05-30] MEDS ORDERED: HYDROmorphone 2 MG/1 ML IVP ONE (12:00)
[2018-05-30] MEDS ORDERED: oxyCODONE IR Tab 5 MG TAB PO ONE (17:48)
[2018-05-31] MEDS: HEPARIN 5000 UNIT/1 ML SUBCUT SCH ×2 (00:54→08:50)
[2018-05-31] MEDS: oxyCODONE IR Tab 5 MG TAB PO PRN ×3 (00:58→08:51)
[2018-05-31] MEDS: ONDANSETRON 4 MG/2 ML VIAL IVP PRN (06:15)
[2018-05-31] MEDS: PANTOPRAZOLE 40 MG TABLET PO SCH (06:42)
[2018-05-31] MEDS ORDERED: HYDROmorphone 2 MG/1 ML IVP ONE ×2 (06:50→11:39)
[2018-05-31] MEDS: LORazepam 1 mg tab (ETOH withdrawal) PO PRN (06:52)
[2018-05-31 07:27] LABS: BASOPHILS # (AUTO) 0.01 10*3/UL; BASOPHILS % (AUTO) 0.3 % (0-1); EOSINOPHILS # (AUTO) 0.11 10*3/UL; EOSINOPHILS % (AUTO) 2.8 % (0-8); Hematocrit [HCT] 42.9 % (42.0-52.0); Hemoglobin [HGB] 15.1 g/dL (14.0-18.0); LYMPHOCYTES # (AUTO) 1.22 10*3/uL; MEAN CORPUSCULAR HEMOGLOBIN 27.2 PG (27-31); MEAN CORPUSCULAR HGB CONC 35.2 g/dL (33-37); MEAN CORPUSCULAR VOLUME 77.2 FL (80-90); MEAN PLATELET VOLUME 8.8 FL (7.4-12.2); MONOCYTES % (AUTO) 7.6 % (5-15); NEUTROPHILS # (AUTO) 2.29 10*3/UL; RED BLOOD COUNT 5.56 10^6/uL (4.70-6.10)
[2018-05-31 07:38] LABS: PLATELET MORPHOLOGY COMMENT NORMAL MORPHOLOGY (NORM); RBC MORPHOLOGY COMMENT NORMAL MORPHOLOGY (NORM); WBC MORPHOLOGY COMMENT NORMAL MORPHOLOGY (NORM)
[2018-05-31 07:42] LABS: BLOOD UREA NITROGEN 9 mg/dL (7-22); LIPASE 260 IU/L (23-300)
[2018-05-31] MEDS: Multivitamin Tab 1 TAB PO SCH (08:50)
[2018-05-31] MEDS: Thiamine Tab 100 MG TAB PO SCH (08:50)
[2018-05-31] MEDS: FOLIC ACID 1 MG TABLET PO SCH (08:50)
[2018-05-31] MEDS ORDERED: VENLAFAXINE XR 75 MG CAP PO SCH (09:00)
--- NOTE | 2018-05-31 09:58 | DI ---
CT Abdomen/Pelvis W Contrast 05/31/2018 7:53 AM History: [facility] – [place] ^YES ^increased abd pain Comparison: CT abdomen/pelvis 05/24/2018. Technique: Imaging was performed with a multi-detector CT scanner. Data acquisition was obtained from the dome of the diaphragm through the pubic symphysis without oral contrast and after the uneventful administration of 75 mL of Isovue intravenous contrast material. Multiplanar reformations were perfo rmed. Findings: The lung bases are clear. There is mild anterior pericardial thickening versus fluid. There is normal CT appearance of the liver, gallbladder, adrenal glands, spleen, kidneys, and pancrea s. Hollow viscus organs demonstrate normal course and caliber. The appendix is unremarkable. There is no free intraperitoneal air or fluid. No abdominopelvic lymphadenopathy is present. Vascular structu res are intact. There is no inguinal hernia. There is a subcentimeter fat containing umbilical hernia . There is gas in the anti-dependent urinary bladder. The osseous structures are within normal limits for the patient's age. Incidental note is made of unf used bilateral L1 transverse processes. Gas in the ventral abdominal wall soft tissues is noted, most commonly associated with subcutaneous injection. Impression: 1. No CT evidence of acute intra-abdominal pathology. There is gas in the urinary bladder; correlate for history of recent instrumentation. 2. There is mild anterior pericardial thickening versus fluid. This is new compared to the prior exam ination and is of uncertain clinical significance.
[2018-05-31] MEDS ORDERED: Prochlorperazine Edisylate Inj 10mg/2ml vial IVP PRN (10:25)
[2018-05-31] MEDS ORDERED: PANTOPRAZOLE IV 40 MG VIAL IVP ONE (10:25)
--- NOTE | 2018-05-31 10:28 | PDOC(PROG) ---
Date of Service: 05/31/18 Time of Service: 10:27 Interval History: Still complains of nausea and vomiting. Complains of epigastric pain with radiation throughout the abdomen. CT scan of the abdomen and pelvis today with contrast was negative for pancreatitis. I have an ultrasound pending to look at the gallbladder. His history seems consistent with gastritis related to alcohol abuse, and he states that he had an EGD done in [place]. Objective : Data - Labs CBC and BMP: 05/31/18 07:20 05/31/18 07:20 - Imaging Ultrasound Status: Report Reviewed by Me (Ultrasound is normal) CT Scan Status: Image Reviewed by Me (I looked at the images well. From what I can see, I don't think that there is evidence of pancreatitis.), Report Reviewed by Me (CT scan of abdomen and pelvis is negative for pancreatitis) Objective : Exam - General General Appearance: No Acute Distress, Cooperative Additional General Exam Details: Vital Signs - Last Taken Temperature 97.5 F 05/31/18 09:00 Pulse Rate 113 H 05/31/18 09:00 Respiratory Rate 20 05/31/18 09:00 Blood Pressure 156/105 05/31/18 09:00 Pulse Ox 96 05/31/18 09:00 - Head Head Exam: Normal Inspection, Normocephalic, Atraumatic - Eye Eye Exam: No Scleral Icterus - ENT ENT Exam: Mucous Membranes Moist - Respiratory Respiratory Exam: Clear to Auscultation - Bilaterally, Breathing Non Labored - Cardiovascular Cardiovascular Exam: RRR, No Murmur, No Clicks, No Gallops, No Rubs, No JVD - GI/Abdominal GI/Abdominal Exam: Normal Bowel Sounds, Non Tender (With distracting examination, the patient did not complain of tenderness.), Non Distended, Soft - Extremities Extremities Exam: No Clubbing Present, No Edema Present, No Cyanosis Present - Neurological Neurological Exam: Alert, Oriented x 3, No Facial Droop, Speech Intact / Clear, Moves All Extremities Equally Assessment and Plan - Patient Problems (1) Alcoholic gastritis Current Visit: Yes Status: Acute Code(s): K29.20 - Alcoholic gastritis without bleeding Qualifiers: Chronicity: acute Gastritis bleeding: without bleeding Qualified Code(s): K29.20 - Alcoholic gastritis without bleeding (2) Delirium tremens Current Visit: Yes Status: Resolved Code(s): F10.231 - Alcohol dependence with withdrawal delirium (3) Pancreatitis, alcoholic, acute Current Visit: Yes Status: Ruled-out Code(s): K85.20 - Alcohol induced acute pancreatitis without necrosis or infection Qualifiers: Acute pancreatitis complication: unspecified Qualified Code(s): K85.20 - Alcohol induced acute pancreatitis without necrosis or infection (4) Alcohol withdrawal Current Visit: Yes Status: Resolved Code(s): F10.239 - Alcohol dependence with withdrawal, unspecified Qualifiers: Complication of substance-induced condition: with delirium Qualified Code(s): F10.231 - Alcohol dependence with withdrawal delirium - Assessment / Plan Additional Assessment/Plan Details: At this point, I cannot explain the nausea and vomiting outside of alcoholic gastritis which could be treated with Protonix. I am not been a start IV pain medications. We'll keep patient nothing by mouth. Will go ahead and get an MRI scan of the abdomen to make sure not missing anything, and I will also get a head MRI scan to make sure there is no evidence of any central occupying/space- occupying lesion that could explain the nausea and vomiting. The resolution of these studies, the patient nothing by mouth, I'm hopeful for discharge by no later than tomorrow on continued proton pump inhibitor and alcohol cessation. He does not appear to have any evidence of chronic pancreatitis.
--- NOTE | 2018-05-31 10:46 | DI ---
US Abdomen Limited 05/31/2018 9:11 AM History: [facility] – [place] DI ^nausea and vomiting, question cholecystitis Comparison: CT abdomen/pelvis from earlier the same day. Procedure: Watt scale and color doppler right upper quadrant ultrasound. Findings: The liver is normal in size, echogenicity, and echotexture. There are no focal lesions visu alized. The gallbladder is normal, without evidence of stones or pericholecystic fluid. There is a no rmal gallbladder wall measuring 3 mm. No sonographic Rai's sign is present. The common duct measur es 5 mm. There is no intrahepatic biliary ductal dilatation. Imaged portions of the pancreas are grossly unremarkable. The right kidney measures 10.9 cm in length . No hydronephrosis, calculi, or masses are appreciated. There is no free fluid seen within the hepa torenal space. Imaged portions of the aorta and IVC are within normal limits. Impression: No cholelithiasis or sonographic evidence of acute cholecystitis.
[2018-05-31] MEDS ORDERED: LORazepam 2 MG/1 ML VIAL IVP ONE (11:39)
[2018-05-31 11:50] VITALS: BP 142/81; RESP 16; TEMP 97.6; O2SAT 97
--- NOTE | 2018-05-31 13:08 | DI ---
MRI Brain WO Contrast 05/31/2018 10:59 AM History: [facility] – [place] ^nausea and vomiting, question central source or ^tumor. Comparison: None. Technique: Routine noncontrast multiecho multiplanar MR imaging of the brain was performed. Findings: There is no evidence of acute or chronic hemorrhage. No extra-axial fluid collections are p resent. There is no focal mass or mass-effect. The ventricles and cisterns are normal in size and con tour. There is normal anatomic appearance of the midline structures. No white matter abnormalities a re seen. There is no diffusion restriction. The cerebral vasculature is grossly normal in appearance. The orbits are unremarkable. There is mucosal thickening of the right sphenoid sinus. Impression: 1. No MR evidence of acute intracranial pathology.
--- NOTE | 2018-05-31 13:57 | DI ---
MRI Abdomen WO Contrast 05/31/2018 10:59 AM History: [facility] – [place] ^nausea, vomiting, alcohol use Comparison: Right upper quadrant ultrasound and CT abdomen and pelvis from earlier the same day. Technique: Multiweighted, multiplanar noncontrast MRCP was performed per routine protocol. FINDINGS: The patient was unable to follow breath-hold commands, resulting in significant motion ava fact. The liver parenchyma exhibits homogeneous signal intensity. No focal lesions are present. There is no significant signal dropout on opposed phase imaging to suggest hepatic steatosis. The gallbladder is adequately distended and there are no filling defects. There is no gallbladder wal l thickening or pericholecystic fluid. No intra- or extrahepatic biliary dilatation is noted. There a re no filling defects in the common duct. The pancreatic duct is not dilated. There is normal taperin g of the biliary tree to the level of the ampulla. There is no evidence of stricture or stenosis. The visualized portions of the pancreas, spleen, bilateral adrenal glands, and bilateral kidneys exhi bit normal MR morphology. Hollow viscus organs demonstrate normal course and caliber. Vascular struct ures are intact. There is no retroperitoneal or mesenteric lymphadenopathy. Heart size is within norm al limits. The lung bases are clear. Osseous structures are unremarkable. IMPRESSION: 1. Unremarkable MRCP appearance of the gallbladder and biliary tree without evidence of cholelithiasi s or acute cholecystitis.
[2018-05-31] MEDS ORDERED: D5-1/2NS + 20mEq KCL 1,000 ML PRIMARY IV SCH (14:30)
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
[2018-05-31] MEDS ORDERED: PANTOPRAZOLE IV 40 MG VIAL IVP SCH (21:00)
== END 2018-05-31 16:35 | disposition home or self-care (01) | DRG 896 ==
LOC: MED/SURG 13:01 → ER 13:01 → MED/SURG 15:59 → ICU 18:09 → MED/SURG 18:09
PROVIDERS: ADMIT Internal Medicine; ATTEND Internal Medicine